=== PATIENT | male | born 1930 | race Caucasian/White ===

== ENCOUNTER 2016-09-24 10:38 | Inpatient (IN) | payer MEDICARE ==
--- NOTE | 2016-09-24 11:08 | EDPRACDOC ---
- Treatment Prior to ED Arrival Reported Medications/Treatment [employer] EMS Treatment ALS IV Yes - General Information Chief Complaint: Neuro Symptoms/Deficits Stated Complaint: POSSIBLE STROKE Time Seen by Provider: 09/24/16 10:48 Information Source: Patient, Family, [facility] Mode of Arrival:: Ambulance Home Medications: Home Medications Cyanocobalamin (Vitamin B-12) [Vitamin B-12] 100 mcg PO HS 09/03/12 Finasteride 5 mg PO QAM 09/03/12 Lisinopril/Hydrochlorothiazide [Lisinopril-Hctz 20-12.5 mg Tab] 1 tab PO .DAILY@ NOON 09/03/12 Tamsulosin HCl [Flomax] 0.4 mg PO [facility] 09/03/12 Furosemide 20 mg PO [facility] 01/15/16 Insulin Detemir [Levemir] 16 units SQ [facility] 01/15/16 Pravastatin [Pravachol] 20 mg PO HS 01/15/16 Aspirin [Jessica Aspirin] 325 mg PO HS 09/24/16 Ergocalciferol (Vitamin D2) [Vitamin D] 50,000 units PO Th@0900 09/24/16 Sertraline HCl [Zoloft] 50 mg PO DAILY 09/24/16 Allergies/Adverse Reactions: Allergies Allergy/AdvReac Type Severity Reaction Status Date / Time No Known Allergies Allergy Verified 09/24/16 11:33 - History of Present Illness Exact Onset of Symptoms: Known Date Symptoms Started: 09/24/16 Time Symptoms Started: 08:45 Symptoms Started: Reports: Suddenly HPI: PT WITH DYSARTHRIA THIS AM, WHILE EATING BREAKFAST. NOTICED BY . INITIALLY NOTICED THAT HE WAS NOT EATING WITH A FORK BUT A SPOON, NOTICED BY HOME SALES SUPPORT ADVISOR. PT DOES USUALLY START THE MORNINGS TALKING SLOWLY. DOES NOT AMBULATE WITHOUT A WALKER. SYMPTOMS RESOLVED AT TIME OF EVAL. BROUGHT BY EMS. PT HAD IMPROVE BY TIME OF EVAL. NO H/O CVA PER . TAKES ASPIRIN 325 Q HS. ED Past Medical History - Patient Medical History Cardiac History: Reports: Atrial Fibrillation, Hypertension, Congestive Heart Failure, Hypercholesterolemia GI/ History: Reports: Renal Disease (CKD STAGE IV), Gastroesophageal Reflux Psychological History: Denies: Depression Systemic History: Reports: Diabetes. Denies: Cancer - Social Medical History Smoking Status: Never smoker EDM Review of Systems - Review of Systems ROS Negative Except as Marked: Yes All systems reviewed and were negative except as marked Constitutional: No Symptoms Reported Eyes: No Symptoms Reported Respiratory: No Symptoms Reported Cardiovascular: No Symptoms Reported Genitourinary: No Symptoms Reported Musculoskeletal: No Symptoms Reported Integumentary: No Symptoms Reported - Physical Exam Constitutional: Alert (Awake), No apparent distress Oriented to: Time, Person, Place Last recorded Vital Signs: Last Vital Signs Temp 98.6 F 09/24/16 10:40 Pulse 74 09/24/16 10:52 Resp 16 09/24/16 10:52 BP 124/74 09/24/16 10:52 Pulse Ox 97 09/24/16 10:52 Oxygen Pulse Oxygen Saturation 97 O2 Device Oxygen Flow Rate Fraction of Inspired Oxygen ( FIO2) - HEENT Head: Normal ( normocephalic) Eye Exam: Normal (PERRL, EOMI, Sclera white) Oropharynx: Normal (Pharynx:Moist without exudate,Gums-no swelling) Nose: No Symptoms Reported (septum midline) Neck: Normal (FROM, trachea at midline) - Respiratory/Cardiovascular Respiratory: Normal - CTA (BBS clear to auscultation without adventitious sounds ) Cardiovascular: Normal (RRR without murmur, gallop or rub) - GI Auscultation: Normal (NABS) Palpation: Normal (Soft,No rebound or guarding, non distended) Tenderness: Non tender Son's Sign: Negative - Musculoskeletal Back: Normal (Non-Tender) Extremities: Normal (Normal tone, Pulses 2+ No cyanosis or edema, FROM) - Integumentary Skin: Normal, Warm, Dry Lymphatics: Normal (no adenopathy) - Neurologic Memory Impaired: Normal Motor Function: Normal (Normal tone, Pulses 2+ No cyanosis or edema, FROM) Cranial Nerve: Normal (CN II-X11 intact sensation, strength 5/5) Cerebellar: Normal Mood Description: Normal Perception: Normal - Re-evaluation Re-evaluation 1 Re-evaluation Time: 12:37 FAMILY REPORTS PT STILL SPEAKING SLOWLY. - Results 09/24/16 11:00 09/24/16 11:00 - EKG EKG #1 EKG Time: 11:02 -: Yes EKG interpreted by me Rate: bpm: 80 Rhythm: Afib Block: RBBB Hypertrophy: None Comments: ABNORMAL EKG Comparison: 09/03/12 (OLD AFIB. NO CHANGE) - Departure Yes I personally saw and evaluated the patient. Disposition: Admit IP To This Hospital Condition: Stable Final Diagnosis: TIA (transient ischemic attack) Qualifiers: Transient cerebral ischemia type: other Qualified Code(s): G45.8 - Other transient cerebral ischemic attacks and related syndromes Decision to Admit Time: 12:36 Decision to admit date: 09/24/16 Decision to admit: from ED - Physician Consulted Hospitalist Time Called: 12:36 Provider Called: Rita Ritchie Time Outsole Beveler Returned Call: 12:36
[2016-09-24 11:11] LABS: AUTOMATED BASOPHIL 0.3 % (0-2); AUTOMATED EOSINOPHIL 0.9 % (0-5); AUTOMATED LYMPH 19.7 % (17-44); AUTOMATED MONOCYTE 8.9 % (3-10); AUTOMATED NEUTROPHIL 70.2 % (45-76); MPV 9.9 fL (7.4-10.4)
--- NOTE | 2016-09-24 11:14 | DIRPT ---
CLINICAL DATA: 85-year-old male with altered mental status with left facial droop. History of skin cancer. Initial encounter. EXAM: CT HEAD WITHOUT CONTRAST TECHNIQUE: Contiguous axial images were obtained from the base of the skull through the vertex without intravenous contrast. COMPARISON: None. FINDINGS: No intracranial hemorrhage or CT evidence of large acute infarct. Probable remote tiny infarct left basal ganglia if further delineation is clinically desired, MR imaging may be considered. Small vessel disease changes. Global atrophy without hydrocephalus. No intracranial mass lesion noted on this unenhanced exam. Vascular calcifications. Post lens replacement. Mastoid air cells, middle ear cavities and visualized paranasal sinuses are clear. IMPRESSION: No intracranial hemorrhage or CT evidence of large acute infarct. Probable remote tiny infarct left basal ganglia if further delineation is clinically desired, MR imaging may be considered Global atrophy without hydrocephalus. Vascular calcifications. These results were called by telephone at the time of interpretation on 09/24/2016 at 11:[address] BARBARA PENA DO, who verbally acknowledged these results. Electronically Signed By: Olaf Cano M.D. On: 09/24/2016 11:08
[2016-09-24 11:23] LABS: BLOOD UREA NITROGEN 39 MG/DL (9-20); CALC CORRECTED 9.6 MG/DL (8.4-10.2); CALCIUM 9.4 MG/DL (8.4-10.2); CALCULATED OSMOLALITY 283 MOs/Kg (270-290); CHLORIDE 104 mEq/L (98-107); GLUCOSE 158 MG/DL (70-99); SODIUM LEVEL 141 mEq/L (137-146); TOTAL PROTEIN 6.9 G/DL (6.3-8.2)
[2016-09-24 11:28] LABS: PARTIAL THROMB. TIME 22.4 SEC (22-35); PT-INR 1.1
--- NOTE | 2016-09-24 11:42 | DIRPT ---
CLINICAL DATA: 85-year-old male with weakness and difficulty speaking this morning. Initial encounter. EXAM: PORTABLE CHEST 1 VIEW COMPARISON: 01/15/2016 chest radiographs. FINDINGS: Portable AP upright view at 1104 hours. Mildly lower lung volumes. Allowing for portable technique, the lungs remain clear. Stable cardiac size and mediastinal contours. IMPRESSION: Low lung volumes, otherwise no acute cardiopulmonary abnormality. Electronically Signed By: Bill Leary M.D. On: 09/24/2016 11:39
[2016-09-24 12:56] LABS: RBC/URINE 0-2 (0-2); WBC/URINE 0-2 (0-2)
[2016-09-24 12:57] LABS: LEUKOCYTES/URINE NEG (NEGATIVE); NITRITE/URINE NEG (NEGATIVE); URINE OCCULT BLOOD NEG (NEG/TRACE)
[2016-09-24] MEDS ORDERED: BISACODYL 10 MG SUPP PR PRN (13:33)
[2016-09-24] MEDS ORDERED: BISACODYL 5 MG TAB PO PRN (13:33)
[2016-09-24] MEDS ORDERED: ACETAMINOPHEN 650 MG SUPP PR PRN (13:33)
[2016-09-24] MEDS ORDERED: MAGNESIUM HYDROXIDE 30 ML BOTTLE PO PRN (13:33)
[2016-09-24] MEDS ORDERED: PROMETHAZINE 25 MG/ML VIAL IV PRN (13:33)
[2016-09-24] MEDS ORDERED: ACETAMINOPHEN 325 MG/TAB TABLET PO PRN (13:33)
[2016-09-24] MEDS ORDERED: GLUCOSE (ORAL GEL) 15 GM TUBE PO PRN (13:33)
[2016-09-24] MEDS ORDERED: BENZONATATE 100 MG PERLES PO PRN (13:33)
[2016-09-24] MEDS ORDERED: SODIUM CHLORIDE 0.9% 3 ML FLUSH FLUSH PRN (13:33)
[2016-09-24] MEDS ORDERED: Albuterol/Ipratropium Neb 3 ML NEB NEB PRN (13:33)
[2016-09-24] MEDS ORDERED: GLUCAGON 1 MG VIAL SQ PRN (13:33)
[2016-09-24] MEDS ORDERED: ONDANSETRON HCL 4 MG/2 ML VIAL IV PRN (13:33)
[2016-09-24] MEDS ORDERED: DEXTROSE 25 GM/50 ML PFS IV PRN (13:33)
[2016-09-24] MEDS ORDERED: SIMETHICONE 80 MG TAB PO PRN (13:33)
[2016-09-24] MEDS ORDERED: GUAIFENESIN 200 MG/10 ML UDC PO PRN (13:33)
[2016-09-24] MEDS ORDERED: INSULIN DETEMIR 100 UNITS/ML PEN SQ SCH (14:00)
[2016-09-24] MEDS ORDERED: ENOXAPARIN 40 MG/0.4 ML PFS SQ SCH (14:00)
[2016-09-24] MEDS: D5-1/2NS/KCL 20 mEq 1,000 ML IV SCH (15:58)
[2016-09-24] MEDS: ENOXAPARIN 80 MG/0.8 ML PFS SQ SCH (15:59)
[2016-09-24] MEDS: SODIUM CHLORIDE 0.9% 3 ML FLUSH FLUSH SCH (16:00)
[2016-09-24] MEDS: INSULIN DETEMIR 100 UNITS/ML PEN SQ SCH (16:01)
[2016-09-24] MEDS: REGULAR INSULIN 100 UNITS/ML - 3 ML VIAL SQ SCH (17:49)
--- NOTE | 2016-09-24 20:40 | HISTPHYS ---
- Chief Complaint Slurred speech - History of Present Illness The patient is an 85-year-old white male with a history of controlled atrial fibrillation diabetes and hypertension who was at his baseline state of health on the morning of admission. He has a home health aide who was present in the home. The patient was apparently eating his breakfast but was using a spoon instead of his fork. When the aide asked him about this she noted that his speech was slurred and slower than usual. She also noted that he was drooling. The patient's noted the symptoms as well. Apparently when the patient woke up this morning he was having none of the symptoms. He only required amount of help with his ADLs. Since the patient started his symptoms the family has noted that his speech is a little bit less slurred but it is still very slow. Normally the patient has no difficulty speaking. He was noted to be moving his arms and legs as well as usual. No facial droop was noted. The family brought him to the emergency department for evaluation for a possible stroke. The patient and family deny that he has had any recent illness no URI symptoms fever cough nausea vomiting diarrhea. - Medical History Cardiac History: Reports: Atrial Fibrillation (Chronic rate controlled AFib), Hypertension, Congestive Heart Failure, Hypercholesterolemia. Denies: Syncope Respiratory History: Reports: No Significant History GI/ History: Reports: Renal Disease (CKD STAGE IV per old records) Musculoskeletal History: Reports: Arthritis Systemic History: Reports: Diabetes (Uses Levemir. Checks his blood sugar once a day. He has had no recent iss) Neurological History: Denies: Cerebrovascular Accident, Guillian-Wellton Syndrome , Parkinson's, Metabolic encephalopathy Psychological History: Denies: Depression - Surgical History Reports: Hernia Surgery (Right inguinal hernia repair in 2009) - Medictions/Allergies Allergies No Known Allergies Allergy (Verified 09/24/16 15:58) Current Medication List: Reviewed (Medications were reviewed with the patient's and see an a) Home Medications Cyanocobalamin (Vitamin B-12) [Vitamin B-12] 100 mcg PO HS 09/03/12 Finasteride 5 mg PO QAM 09/03/12 Lisinopril/Hydrochlorothiazide [Lisinopril-Hctz 20-12.5 mg Tab] 1 tab PO .DAILY@ NOON 09/03/12 Tamsulosin HCl [Flomax] 0.4 mg PO QAM 09/03/12 Furosemide 20 mg PO [facility] 01/15/16 Insulin Detemir [Levemir] 16 units SQ [facility] 01/15/16 Pravastatin [Pravachol] 20 mg PO 01/15/16 Aspirin [Jessica Aspirin] 325 mg PO HS 09/24/16 Ergocalciferol (Vitamin D2) [Vitamin D] 50,000 units PO Th@0900 09/24/16 Sertraline HCl [Zoloft] 50 mg PO DAILY 09/24/16 - Family History Reports: Cardiac Disorders (Father of congestive heart failure.), Other ( Mother from Alzheimer's) - Social History Travel Outside of [place] in the Last 3 Months?: No Lives: with Spouse Smoking Status: Never smoker Social History: Denies: Alcohol Use - Review of Systems Constitutional: negative: Chills, Fever, Diaphoresis, Loss of Appetite, Weight loss Eyes: negative: Blurred Vision, Double Vision Ears: negative: Drainage Nose: negative: Congestion, Discharge Mouth: Drooling Throat/Neck: negative: Pain, Hoarseness Respiratory: negative: Cough, Shortness of Breath, Wheezing Cardiovascular: negative: Chest Pain, Palpitations Gastrointestinal: negative: Nausea, Vomiting, Abdominal Pain, Diarrhea Genitourinary: Benign prostatic hyperplasia (BPH). negative: Dysuria, Frequency , Hematuria Neurological: Speech Difficulty, Memory Changes (Family has noted some very mild memory issues). negative: Dizziness, Gait Difficulty, Headache, Vertigo Musculoskeletal:: Arthritis Integumentary: negative: Wound Hematologic: Anemia (Chronic hemoglobin of about 11. Was seen by Dr. Garcia in the past but no follow-up was needed.) Endocrine: Diabetes Psychiatric: Depression (Just had his Zoloft dose increased). negative: Anxiety - Physical Exam Vital Signs: Initial Vitals Temperature 98.6 F 09/24/16 10:40 Pulse Rate 80 09/24/16 10:40 Respiratory Rate 18 09/24/16 10:40 Blood Pressure 126/70 09/24/16 10:40 Pulse Oxygen Saturation 100 09/24/16 10:40 Constitutional: Alert, Other (Stares into space. Does answer questions but does so very slowly.) - HEENT Head: Normal Eye: negative: Conjunctival Injection Oropharynx: Membranes Dry. negative: Drooling Tympanic Membrane: Normal ENT EAC: Normal Nose: negative: Congestion, Discharge Respiratory: Normal - CTA, Excursion (Decreased excursion) Cardiovascular: Irregular. negative: Gallop/S3, Gallop/S4 - GI Auscultation: Normal Palpation: Normal. negative: Enlarged liver, Enlarged spleen Tenderness: Non tender Rectal Exam: Deferred - Exam Deferred: Yes - Musculoskeletal Back: negative: CVA Tenderness Extremities: Edema (One to 2+ pitting edema in his lower extremities. He is usually wearing compression hose but does not have them on today) Spine: non-tender - Integumentary Skin: Normal, Warm, Dry Lymphatics: Normal. negative: Cervical Adenopathy, Supraclavicular Adenopathy - Neurologic Memory Impaired: Other (Difficult to test because the patient is very very slow with answering.) Motor Function: Normal (Will lift both his arms and legs against gravity.) Cranial Nerve: Normal (Cranial nerves 3-12 appear to be intact although the patient requires a fair amount of prompting) Cerebellar: negative: Past-Pointing, Tremor Mood Description: Flat Thought: Other (Sentences have normal content.) - Foot Exam Foot Prick Test: Abnomal Right, Abnormal Left (Decreased sensation from his arch distally on both feet) Babinski Reflex Response: Present Right Skin/Nail Foot Exam: Dry. negative: Fissure/Cracks Vascular Foot exam: Edema Foot Exam: Normal inspection - Focused CV Perfusion Exam Vital Signs: Last Vital Signs Temp 98.1 F 09/24/16 20:27 Pulse 76 09/24/16 20:27 Resp 18 09/24/16 20:27 BP 119/64 09/24/16 20:27 Pulse Ox 95 09/24/16 20:27 - Lab Results 09/24/16 11:00 09/24/16 11:00 Urinalysis Urine Color Yellow 09/24/16 12:45 Urine Clarity Clear 09/24/16 12:45 Urine pH 6.0 (5.0-8.0) 09/24/16 12:45 Ur Specific [place] 1.015 (1.003-1.035) 09/24/16 12:45 Urine Protein Neg (NEG/TRACE) 09/24/16 12:45 Urine Glucose (UA) Neg (NEGATIVE) 09/24/16 12:45 Urine Ketones Neg (NEGATIVE) 09/24/16 12:45 Urine Occult Blood Neg (NEG/TRACE) 09/24/16 12:45 Urine Nitrite Neg (NEGATIVE) 09/24/16 12:45 - Diagnostic Findings Chest x-ray report shows low lung volumes otherwise no acute cardiopulmonary abnormality CT of the head without contrast showed no intracranial hemorrhage or evidence of large acute infarct. Probable remote tiny infarct in the left basal ganglia. Global atrophy without hydrocephalus. Vascular calcifications. - Assessment (1) CVA (cerebral vascular accident) I63.9 - CEREBRAL INFARCTION, UNSPECIFIED Suspected Present on Admission: Yes Qualifiers: CVA mechanism: C Precerebral and cerebral artery: P Laterality of affected vessel: L The CT of the head negative for bleed but will still treat the patient as a stroke. Evidence based care orders were used. OT PT and speech will be ordered. Manage his diabetes and hypertension. Will add full-dose Lovenox as the patient has a history of AFib. The chest check an echocardiogram. Check an MRI of his head as well as ultrasound of his carotids. Would like to do as little contrast study as possible in this patient with renal disease. (2) Dysphagia R13.10 - DYSPHAGIA, UNSPECIFIED Acute Present on Admission: Yes Qualifiers: Dysphagia type: unspecified Qualified Code(s): R13.10 - Dysphagia, unspecified Speech therapy to see the patient. Patient to be NPO. The patient's family was feeding him ice chips in the emergency department at they were asked to discontinue this.. (3) Hypertension I10 - ESSENTIAL (PRIMARY) HYPERTENSION Acute Present on Admission: Yes Qualifiers: Hypertension type: H Continue outpatient medications. Need to be sure the patient's blood pressure does not drop too low given the presumptive diagnosis of stroke (4) Diabetes mellitus E11.9 - TYPE 2 DIABETES MELLITUS WITHOUT COMPLICATIONS Acute Present on Admission: Yes Qualifiers: Diabetes mellitus type: type 2 Diabetes mellitus complication status: with neurologic complications Diabetes mellitus complication detail: with polyneuropathy Diabetic retinopathy severity: D Proliferative retinopathy type: P Diabetes mellitus macular edema: D Diabetes mellitus residential insulin use: with residential use Laterality: L Chronic kidney disease stage: C Qualified Code(s): E11.42 - Type 2 diabetes mellitus with diabetic polyneuropathy; Z79.4 - penitentiary (current) use of insulin Continue sliding scale. Will give the patient some IV fluids while he is NPO. Will hold his Levemir until he is taking p.o. (5) Atrial fibrillation with normal ventricular rate I48.91 - UNSPECIFIED ATRIAL FIBRILLATION Chronic Present on Admission: Yes Patient normally sees Dr. Megan kincaid. He has not been anticoagulated in some time. His rate has been controlled for several years on his outpatient medications. 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 Will have PT see the patient. Case Care Discussed with: Patient, Family, Nursing Staff Total Time: 55 minutes Critical Care: No Couseling Time (>50% in counseling/coordination): No Code: 34636
[2016-09-24] MEDS: SERTRALINE HCL 50 MG TAB PO SCH (23:21)
[2016-09-25] MEDS: REGULAR INSULIN 100 UNITS/ML - 3 ML VIAL SQ SCH ×5 (01:12→21:33)
[2016-09-25] MEDS: ENOXAPARIN 80 MG/0.8 ML PFS SQ SCH ×2 (01:16→13:24)
[2016-09-25] MEDS: SODIUM CHLORIDE 0.9% 3 ML FLUSH FLUSH SCH ×2 (02:32→17:22)
[2016-09-25] MEDS: D5-1/2NS/KCL 20 mEq 1,000 ML IV SCH ×3 (05:23→18:16)
[2016-09-25] MEDS: INSULIN DETEMIR 100 UNITS/ML PEN SQ SCH (08:28)
--- NOTE | 2016-09-25 11:38 | CAPUECHO ---
INDICATION: CVA HEIGHT: 177.8 cm (5 ft 10.0 in) WEIGHT: 83.9 kg (185.0 lbs) BP: 136/77 BSA: 2.969449 m MEASUREMENTS 2D RVIDd: 3.1 cm LVOT Diam: 2.1 cm EF Biplane: 62.28 % LAESV MOD A4C: 129.7 ml LAESV MOD A2C: 86.1 ml LAESV Index (A-L): 54.86 ml/m M-MODE IVSd: 1.0 cm LVIDd: 5.7 cm LVPWd: 1.0 cm LVIDs: 3.7 cm EF(Teich): 64 % Ao Diam: 3.4 cm LA Diam: 3.9 cm DOPPLER MV E Jerry: 1.12 m/s MV A Jerry: 0.01 m/s MV PHT: 53.08 ms MVA By PHT: 4.15 cm LVOT Vmax: 0.90 m/s AV Vmax: 2.05 m/s BRUCE Vmax, Pt: 1.59 cm AV Vmax: 2.07 m/s TR Vmax: 2.41 m/s TR maxP mmHg RVSP: 46.65 mmHg FINDINGS ------- Procedure:2D images, m-mode, color and spectral Doppler were obtained and reviewed. ECG rhythm:Sinus rhythm with extra systolic beats. Study quality:This was a technically adequate study. Left Ventricle:The left ventricular size is normal. Left ventricular wall thickness is normal. T here is normal global left ventricular contractility. Overall left ventricular systolic function i s normal with, an EF between 60 - 65 %. Pseudonormal LV filling pattern, consistent with elevated LA pressure. Right Ventricle:The right ventricle is normal in size and function. Left Atrium:The left atrium is normal in size. Right Atrium:The right atrium is normal in size and function. Aortic Valve:The aortic valve is trileaflet and appears structurally normal. There is mild aortic valve sclerosis. Mitral Valve:Normal appearing mitral valve. Mild mitral regurgitation is present. Tricuspid Valve:The tricuspid valve appears structurally normal. [id number] tricuspid regurg itation present. The right ventricular systolic pressure, as measured by Doppler, is 47mmHg. Pulmonic Valve:The pulmonic valve is normal. There is no pulmonic regurgitation present. Aorta:The aortic root, ascending aorta and aortic arch not visualized. IVC:Normal inferior vena cava without normal inspiratory collapse, patient unable to sniff. Pericardium:Echo free space may represent effusion or a pericardial fat pad. CONCLUSIONS 1. Overall left ventricular systolic function is normal with, an EF between 60 - 65 %. 2. Pseudonormal LV filling pattern, consistent with elevated LA pressure. 3. The left atrium is normal in size. 4. Mild mitral regurgitation is present. 5. Cvuv-fo-zjeldkjg tricuspid regurgitation present. 6. The right ventricular systolic pressure, as measured by Doppler, is 47mmHg. Electronically Signed By: Luis Enrique Schuster MD -- Electronically Signed On: 11:37:23
--- NOTE | 2016-09-25 12:21 | GENMEDPROG ---
Subjective Note: The patient speech is better this morning. However overnight and through the day today the patient has had increased of dizziness which he is describing as his head spinning in the room. He feels this whether he is moving or still. When he is supine he feels that he is falling backwards. He denies any headache nausea or vomiting with it. It is making him quite anxious. He tolerated the MRI of his head well. He is not yet had ultrasound of his carotids and vertebrals Current Medication List: Reviewed Currently: Denies: Cough, Wheezing, FIGUEROA, SOB, Tobacco Use/Hx, Nausea and Vomiting DVT Prophylaxis: Yes - Physical Examination Vital Signs and I&O: Last Vital Signs Temp 98.2 F 09/25/16 08:39 Pulse 84 09/25/16 10:15 Resp 18 09/25/16 08:39 BP 149/79 09/25/16 08:39 Pulse Ox 95 09/25/16 08:39 Oxygen Pulse Oxygen Saturation 95 O2 Device Room Air Oxygen Flow Rate Fraction of Inspired Oxygen ( FIO2) Intake & Output 09/22/16 09/23/16 09/24/16 09/25/16 23:59 23:59 23:59 23:59 Intake Total 340 1812 Output Total 200 1400 Balance 140 412 Patient's weight 47.038 kg 83.234 kg General: Alert, Oriented x3, Cooperative, Mild distress (Anxious because of the dizziness) HEENT: PERRLA, EOMI, Mucous membr. moist/pink. negative: Anicteric Sclera Neck: Normal Trachea alignment, Normal inspection Lymphatics: Normal. negative: Cervical Adenopathy, Supraclavicular Adenopathy Respiratory: Normal - CTA, Excursion (Decreased excursion) Cardiovascular: Good Pedal Pulses, LE Edema (1+ bilaterally), Irregular GI: Normal bowel sounds, Soft, Non tender, No hepatospenomegaly Extremities/Musculoskeletal: Normal pulses Skin: Warm,Dry and Intact Neurological: Normal speech (Normal speed and is understandable. Family states this is very close to his baseline.), Strength at 5/5 X4 ext, Cranial nerves 3- 12 NL. negative: Dysmetria Psych/Mental Status: Anxious Lab/DI/Studies Reviewed: 09/24/16 11:00 09/24/16 11:00 - Assessment (1) CVA (cerebral vascular accident) Suspected I63.9 - CEREBRAL INFARCTION, UNSPECIFIED Qualifiers: CVA mechanism: C Precerebral and cerebral artery: P Laterality of affected vessel: L Comment/Plan: MRI of the head is negative for acute ischemia. Echocardiogram is normal with a normal ejection fraction. No clot was noted. Ultrasound of the carotids and vertebrals is still pending. The patient's speech has improved in 24 hours but he has developed a new symptom of vertigo. I am still concerned that this is a neurologic event such as a RIND. I will change him from full-dose Lovenox to prophylactic dose of Lovenox (2) Vertigo Acute R42 - DIZZINESS AND GIDDINESS Comment/Plan: The patient has developed this as his speech has improved. It is difficult to believe the dose to symptoms are not related however his MRI is normal. Will start him on some Ativan twice a day to see if it improves his symptoms of dizziness. Ultrasound of his carotid/vertebrals is still pending. (3) Dysphagia Acute R13.10 - DYSPHAGIA, UNSPECIFIED Qualifiers: Dysphagia type: unspecified Qualified Code(s): R13.10 - Dysphagia, unspecified Comment/Plan: Speech therapy has seen the patient. He is on nectar thick liquids. Barium swallow is ordered. (4) Hypertension Acute I10 - ESSENTIAL (PRIMARY) HYPERTENSION Qualifiers: Hypertension type: secondary to endocrine disorders Qualified Code(s): I15.2 - Hypertension secondary to endocrine disorders Comment/Plan: Since there is no evidence of an acute stroke I have added back the patient's outpatient blood pressure medication. (5) Diabetes mellitus Acute E11.9 - TYPE 2 DIABETES MELLITUS WITHOUT COMPLICATIONS Qualifiers: Diabetes mellitus type: type 2 Diabetes mellitus complication status: with neurologic complications Diabetes mellitus complication detail: with polyneuropathy Diabetic retinopathy severity: D Proliferative retinopathy type: P Diabetes mellitus macular edema: D Diabetes mellitus longterm insulin use: with longterm use Laterality: L Chronic kidney disease stage: C Qualified Code(s): E11.42 - Type 2 diabetes mellitus with diabetic polyneuropathy; Z79.4 - custodial (current) use of insulin Comment/Plan: Since the patient is eating I have added back as Levemir. Will also use sliding scale. (6) Atrial fibrillation with normal ventricular rate Chronic I48.91 - UNSPECIFIED ATRIAL FIBRILLATION Comment/Plan: Patient normally sees Dr. Vicente. He has not been anticoagulated in some time. His rate has been controlled for several years on his outpatient medications. Echo is negative for clot. (7) Neurologic gait dysfunction Chronic R26.9 - UNSPECIFIED ABNORMALITIES OF GAIT AND MOBILITY Comment/Plan : Patient normally use a walker for ambulation. Will have PT see the patient. Case Care Discussed with: Patient, Consultants, Family, Nursing Staff Education/Counseling Given To: Patient, Family Member Education/Counseling Given Regarding: Diagnosis, Treatment, Prognosis Total Time: 45 minutes Critical Care: No Couseling Time (>50% in counseling/coordination): No Code: 86703 (12+)
[2016-09-25] MEDS ORDERED: Vaccine Screening Complete SCH (13:00)
--- NOTE | 2016-09-25 13:23 | DIRPT ---
CLINICAL DATA: Stroke. Speech changes. Inability to swallow. EXAM: MRI HEAD WITHOUT AND WITH CONTRAST TECHNIQUE: Multiplanar, multiecho pulse sequences of the brain and surrounding structures were obtained without and with intravenous contrast. CONTRAST: 20 mL MultiHance COMPARISON: Head CT 09/24/2016 FINDINGS: The study is mildly motion degraded throughout. There is no evidence of acute infarct, intracranial hemorrhage, mass, midline shift, or extra-axial fluid collection. Mild generalized cerebral atrophy is within normal limits for age. Subcortical and periventricular cerebral white matter T2 hyperintensities are nonspecific but compatible with minimal chronic small vessel ischemic disease, less than is often seen in patients of this age. Small T2 hyperintensities in the left lentiform nucleus are favored to reflect mildly dilated perivascular spaces. No definite abnormal enhancement is identified. Small focus of increased signal in the posterior left temporal lobe on axial postcontrast images is not confirmed on the coronal sequence and is favored to be artifactual. Prior bilateral cataract extraction is noted. Paranasal sinuses and mastoid air cells are clear. Major intracranial vascular flow voids are preserved. IMPRESSION: Mildly motion degraded examination without acute intracranial abnormality identified. Electronically Signed By: Eduardo Richter M.D. On: 09/25/2016 13:21
[2016-09-25] MEDS ORDERED: FUROSEMIDE 20 MG TAB PO PRN (17:44)
[2016-09-25] MEDS ORDERED: LORAZEPAM 0.5 MG TAB PO PRN (17:48)
[2016-09-25] MEDS ORDERED: TEMAZEPAM 15 MG CAP PO ONE (21:00)
[2016-09-25] MEDS ORDERED: Non-Formulary Medication ITEM (Cyanocobalamin (Vitamin B-12) [Vitamin B-12 (Cyanocobalam PO SCH (21:00)
[2016-09-25] MEDS: PRAVASTATIN 20 MG TAB PO SCH (21:33)
[2016-09-25] MEDS: SERTRALINE HCL 100 MG TAB PO SCH (21:34)
[2016-09-25] MEDS: ENOXAPARIN 40 MG/0.4 ML PFS SQ SCH (21:34)
[2016-09-25] MEDS: SERTRALINE HCL 50 MG TAB PO SCH (21:34)
[2016-09-26] MEDS: REGULAR INSULIN 100 UNITS/ML - 3 ML VIAL SQ SCH ×4 (05:22→20:37)
[2016-09-26] MEDS: SODIUM CHLORIDE 0.9% 3 ML FLUSH FLUSH SCH ×2 (05:22→17:53)
[2016-09-26] MEDS: INSULIN DETEMIR 100 UNITS/ML PEN SQ SCH (07:57)
[2016-09-26] MEDS: FINASTERIDE 5 MG TAB PO SCH (07:58)
--- NOTE | 2016-09-26 08:13 | DIRPT ---
CLINICAL DATA: Speech difficulty and difficulty swallowing. History of hypertension and diabetes. EXAM: BILATERAL CAROTID DUPLEX ULTRASOUND TECHNIQUE: Cristina scale imaging, color Doppler and duplex ultrasound were performed of bilateral carotid and vertebral arteries in the neck. COMPARISON: None. FINDINGS: Criteria: Quantification of carotid stenosis is based on velocity parameters that correlate the residual internal carotid diameter with NASCET-based stenosis levels, using the diameter of the distal internal carotid lumen as the denominator for stenosis measurement. The following velocity measurements were obtained: RIGHT ICA: 82/24 cm/sec CCA: 83/11 cm/sec SYSTOLIC ICA/CCA RATIO: 1.0 DIASTOLIC ICA/CCA RATIO: 2.1 ECA: 87 cm/sec LEFT ICA: 55/20 cm/sec CCA: 84/8 cm/sec SYSTOLIC ICA/CCA RATIO: 0.7 DIASTOLIC ICA/CCA RATIO: 2.4 ECA: 72 cm/sec RIGHT CAROTID ARTERY: The common carotid artery demonstrates intimal thickening. There is evidence of a mild amount of calcified plaque at the level of the carotid bulb and proximal ICA. Velocities and waveforms are normal and estimated right ICA stenosis is less than 50%. RIGHT VERTEBRAL ARTERY: Antegrade flow with normal waveform and velocity. LEFT CAROTID ARTERY: There is a mild amount of calcified plaque in the common carotid artery. Mild amount of plaque is also present at the level of the carotid bulb and extending into the proximal ICA. Velocities and waveforms are normal and estimated left ICA stenosis is less than 50%. LEFT VERTEBRAL ARTERY: Antegrade flow with normal waveform and velocity. IMPRESSION: Plaque at the level of both carotid bulbs, proximal internal carotid arteries and the distal left common carotid artery. Overall plaque volume is mild and estimated bilateral ICA stenoses are less than 50%. Electronically Signed By: Fab Montes M.D. On: 09/26/2016 08:10
[2016-09-26] MEDS ORDERED: TAMSULOSIN HCL 0.4 MG CAP PO SCH (09:00)
--- NOTE | 2016-09-26 09:00 | GENMEDPROG ---
Subjective Note: Patient in bed responsive follows commands. According to and daughter speech is clear. Patient still reports feeling dizzy and lightheaded on occasions. He stays that he had a sensation of food getting stuck in his throat for past few months. Patient denies and difficulties breathing cough phlegm production. Notes Reviewed: Yes Events from last night noted and discussed with Clinical Staff Current Medication List: Reviewed Currently: Reports: FIGUEROA, Reflux Sx. Denies: Cough, Wheezing, SOB, Tobacco Use/ Hx, Nausea and Vomiting DVT Prophylaxis: Yes - Physical Examination Vital Signs and I&O: Last Vital Signs Temp 98.0 F 09/26/16 07:59 Pulse 70 09/26/16 07:59 Resp 18 09/26/16 07:59 BP 139/87 09/26/16 07:59 Pulse Ox 97 09/26/16 07:59 Oxygen Pulse Oxygen Saturation 97 O2 Device Room Air Oxygen Flow Rate Fraction of Inspired Oxygen ( FIO2) Intake & Output 09/23/16 09/24/16 09/25/16 09/26/16 23:59 23:59 23:59 23:59 Intake Total 340 2792 313 Output Total 200 1400 825 Balance 140 1392 -512 Patient's weight 47.038 kg 83.234 kg 83.96 kg General: Alert, Oriented x3, Cooperative, Mild distress (Anxious because of the dizziness) HEENT: Normal, PERRLA, EOMI, Mucous membr. moist/pink. negative: Anicteric Sclera Neck: Normal Trachea alignment, Normal inspection, Limited range of motion Lymphatics: Normal. negative: Cervical Adenopathy, Supraclavicular Adenopathy Respiratory: Diminished, Rhonchi Cardiovascular: Normal S1, Normal S2, Murmurs, Good Pedal Pulses, LE Edema (1+ bilaterally), Irregular GI: Normal bowel sounds, Soft, Non tender, No hepatospenomegaly, No masses Extremities/Musculoskeletal: Normal pulses, Tenderness Skin: Warm,Dry and Intact, No rashes, No breakdown, No significant lesion Neurological: Normal speech (Normal speed and is understandable. Family states this is very close to his baseline.), Strength at 5/5 X4 ext, Cranial nerves 3- 12 NL. negative: Dysmetria Psych/Mental Status: Anxious Lab/DI/Studies Reviewed: Last Vital Signs Temp 98.0 F 09/26/16 07:59 Pulse 70 09/26/16 07:59 Resp 18 09/26/16 07:59 BP 139/87 09/26/16 07:59 Pulse Ox 97 09/26/16 07:59 09/24/16 11:00 09/24/16 11:00 Abnormal Lab Results 09/25/16 09/25/16 13:09 17:24 POC Capillary Glucose 145 H 163 H - Assessment (1) CVA (cerebral vascular accident) Ruled-out I63.9 - CEREBRAL INFARCTION, UNSPECIFIED Qualifiers: Precerebral and cerebral artery: basilar artery Laterality of affected vessel: L Comment/Plan: Family reports that due to safety and high risk for falls patient was taken off Coumadin in the past. Results of workup discussed in details with the patient and his daughter and his . Case discussed with neurologist as well. Continue medical therapy in the form of aspirin 81 mg and Plavix 75 mg daily. (2) Dysphagia Acute R13.10 - DYSPHAGIA, UNSPECIFIED Qualifiers: Dysphagia type: oropharyngeal phase Qualified Code(s): R13.12 - Dysphagia, oropharyngeal phase Comment/Plan: For modified barium swallow today. Will consult GI for possible EGD and esophageal stretching (3) Hypertension Acute I10 - ESSENTIAL (PRIMARY) HYPERTENSION Qualifiers: Hypertension type: secondary to endocrine disorders Qualified Code(s): I15.2 - Hypertension secondary to endocrine disorders Comment/Plan: Keep SBP above 140, cut back lisinopril to 10 mgdaily (4) Atrial fibrillation with normal ventricular rate Chronic I48.91 - UNSPECIFIED ATRIAL FIBRILLATION Comment/Plan: rate controlled.Keep K more than 4 magnesium more than 2 (5) Diabetes mellitus Acute E11.9 - TYPE 2 DIABETES MELLITUS WITHOUT COMPLICATIONS Qualifiers: Diabetes mellitus type: type 2 Diabetes mellitus complication status: with neurologic complications Diabetes mellitus complication detail: with polyneuropathy Diabetic retinopathy severity: D Proliferative retinopathy type: P Diabetes mellitus macular edema: D Diabetes mellitus skilled nursing insulin use: with termite technician use Laterality: L Chronic kidney disease stage: C Qualified Code(s): E11.42 - Type 2 diabetes mellitus with diabetic polyneuropathy; Z79.4 - intermediate manager (current) use of insulin Comment/Plan: Continue ADA diet Levemir and sliding scale regular insulin (6) VBI (vertebrobasilar insufficiency) 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 Change Flomax dosing to HS, keep SBP greater than 140. Continue falls and safety precautions. 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 Will likely require short-term rehab. Additional Notes: Clinic situation discussed in details with patient his and daughter all questions answered, copies of test provided for home records Case Care Discussed with: Patient, Consultants, Family, Nursing Staff, Occupational Therapy, Physical Therapy, [place] Education/Counseling Given To: Patient Education/Counseling Given Regarding: Diagnosis, Treatment, Prognosis, Follow Up Total Time: 55 min . Critical Care: No Code: 91040 (12+)
[2016-09-26 09:29] VITALS: TEMP 98
[2016-09-26] MEDS: CLOPIDOGREL 75 MG TAB PO SCH (10:34)
[2016-09-26] MEDS: PANTOPRAZOLE 40 MG TAB PO SCH (10:34)
[2016-09-26] MEDS ORDERED: LISINOPRIL 20 MG TAB PO SCH ×2 (12:00)
[2016-09-26] MEDS ORDERED: HYDROCHLOROTHIAZIDE 25 MG TAB PO SCH (12:00)
[2016-09-26] MEDS: LISINOPRIL 10 MG TAB PO SCH (13:43)
[2016-09-26] MEDS ORDERED: VARIBAR THIN 40% BARIUM 250 ML ONE (14:41)
[2016-09-26] MEDS ORDERED: VARIBAR NECTAR 40% BARIUM 240 ML ONE (14:42)
--- NOTE | 2016-09-26 17:21 | PCM.CONSGI ---
Consult Date: 09/26/16 Consult Requesting Physician: Thomas Last - History of Present Illness 85-year-old white male with a history of atrial fibrillation diabetes and hypertension admitted with TIA/mild stroke with slurred speech, drooling and weakness. This was also associated with some dizziness. He underwent MRI of the head and carotid Doppler ultrasound which did not reveal any acute abnormalities. GI is being consulted due to dysphagia According to the patient he had problems with dysphagia over last several months and has been having problems swallowing pills. He denies having any cough. He does have occasional problems with liquids as well. During this admission he has been evaluated by speech therapy. There has been no significant oropharyngeal abnormalities noted on modified barium swallow. On review the barium tablet was not given during the test. Patient's family is at the bedside. There would like to evaluate swallowing noninvasively 1st and see if the endoscopy is needed. Patient is currently on aspirin, Plavix and Lovenox. He was sitting in chair - Past Medical History Cardiac History: Reports: Coronary Artery Disease, Atrial Fibrillation Respiratory History: Reports: Cough GI/ History: Reports: Renal Disease (CKD STAGE IV per old records) Musculoskeletal History: Reports: Osteoarthritis Systemic History: Reports: Diabetes Neurological History: Reports: Cerebrovascular Accident Psychological History: Denies: Alcoholism, Substance Use Disorder - Surgical History Past Surgical History: Reports: No Significant History, Hernia Surgery (Right inguinal hernia repair in 2009) - Family History Family History: Reports: Cardiac Disorders (Father of congestive heart failure.), Renal Disease (CKD STAGE IV per old records) - Allergies Allergies No Known Allergies Allergy (Verified 09/24/16 15:58) - Medications Home Medications Cyanocobalamin (Vitamin B-12) [Vitamin B-12] 100 mcg PO HS 09/03/12 Finasteride 5 mg PO QAM 09/03/12 Tamsulosin HCl [Flomax] 0.4 mg PO QAM 09/03/12 Furosemide 20 mg PO QAM PRN 01/15/16 Insulin Detemir [Levemir] 16 units SQ QAM 01/15/16 Pravastatin [Pravachol] 20 mg PO HS 01/15/16 Aspirin [Jessica Aspirin] 325 mg PO HS 09/24/16 Ergocalciferol (Vitamin D2) [Vitamin D] 50,000 units PO Th@0900 09/24/16 Lisinopril/Hydrochlorothiazide [Lisinopril-Hctz 20-25 mg Tab] 1 each PO .DAILY AT NOON 09/25/16 Sertraline HCl [Zoloft] 100 mg PO QHS 09/25/16 - Social History Lives: with Spouse Smoking Status: Never smoker Social History: Denies: Alcohol Use, Substance Use Disorder - Review of Systems Constitutional: Other (No night sweats.). negative: Chills, Fever, Weight loss (Recent) Mouth: negative: Pain Cardiovascular: negative: Chest Pain, Orthopnea, PND Gastrointestinal: Other (No jaundice, dark urine or pale stools.) Genitourinary: Other (Denies polyuria.). negative: Dysuria Neurological: Other (Denies loss of consciousness.). negative: Seizure Allergic/Immunologic: negative: Hives, Itching Hematologic: negative: Easy Bruising - Exam Vital Signs: Temperature: 98.1 F (09/26/16 17:16) HR: 72 (09/26/16 17:16) RR: 18 (09/26/16 17:16) BP: 139/69 (09/26/16 17:16) Pulse Ox: 97 (09/26/16 17:16) General: Alert, Oriented x3, Cooperative, No acute distress HEENT: Normal, Other (No Jaundice). negative: Pallor Cardiovascular: Normal S1, Normal S2, Other (No S3 or S4.). negative: No murmurs Gastrointestinal: Soft, Bowel Sounds (normal), Other (No ascites.). negative: Tender, Guarding, Rigid, Hepatosplenomegaly Extremities: Normal pulses. negative: Swelling, Edema Skin: Warm,Dry and Intact Neurological: Normal speech, Other (No focal neurologic deficits.) Psych/Mental Status: Normal Affect, Cooperative - Labs Result Diagrams: 09/24/16 11:00 09/24/16 11:00 - Assessment and Plan (1) Dysphagia Acute R13.10 - DYSPHAGIA, UNSPECIFIED oropharyngeal phase R13.12 - Dysphagia, oropharyngeal phase Comment: And esophageal - negative modified barium swallow for any significant abnormalities (2) Diabetes mellitus Acute E11.9 - TYPE 2 DIABETES MELLITUS WITHOUT COMPLICATIONS type 2 with neurologic complications with polyneuropathy D P D with manager intermediate use L C E11.42 - Type 2 diabetes mellitus with diabetic polyneuropathy; Z79.4 - snf (current) use of insulin (3) Hypertension Chronic I10 - 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 Conventional Ba Swallow with Ba tablet in AM. MBS was negative. If there is significant stricture., then EGD with dilatation with anesthesia next day 2. Continue Protonix for now 3. I have discussed the above with Dr. Last. 4. I have discussed extensively with the patient and patient's family. Patient 's family is not keen on putting him through EGD multiple comorbid conditions including CVA, advanced age, being on blood thinners. 5. Feed and give medications in sitting position. Addendum: Barium swallow was postponed as patient did eat. It was performed on 09/28/2016 which showed significant esophageal dysmotility without any definite esophageal stricture. It did show wide open Schatzki ring with small hiatal hernia. The barium swallow was reviewed and was discussed with Dr. [place] (radiology). After review, we do not feel that EGD with dilatation would be of any benefit. I have discussed the above with Dr. Last
[2016-09-26] MEDS: ENOXAPARIN 40 MG/0.4 ML PFS SQ SCH (17:59)
[2016-09-26] MEDS: SERTRALINE HCL 100 MG TAB PO SCH (20:37)
[2016-09-26] MEDS: TEMAZEPAM 15 MG CAP PO SCH (20:37)
[2016-09-26] MEDS: PRAVASTATIN 20 MG TAB PO SCH (20:37)
[2016-09-26] MEDS: TAMSULOSIN HCL 0.4 MG CAP PO SCH (20:37)
[2016-09-26] MEDS ORDERED: TEMAZEPAM 15 MG CAP PO PRN (21:00)
[2016-09-27 03:28] VITALS: BMI 26.6
[2016-09-27] MEDS: PANTOPRAZOLE 40 MG TAB PO SCH (05:27)
[2016-09-27] MEDS: SODIUM CHLORIDE 0.9% 3 ML FLUSH FLUSH SCH ×2 (05:30→17:54)
[2016-09-27] MEDS: REGULAR INSULIN 100 UNITS/ML - 3 ML VIAL SQ SCH ×4 (05:53→21:23)
[2016-09-27] MEDS: CLOPIDOGREL 75 MG TAB PO SCH (10:50)
[2016-09-27] MEDS: FINASTERIDE 5 MG TAB PO SCH (10:51)
[2016-09-27] MEDS: INSULIN DETEMIR 100 UNITS/ML PEN SQ SCH (10:51)
[2016-09-27] MEDS: LISINOPRIL 10 MG TAB PO SCH (12:54)
--- NOTE | 2016-09-27 16:40 | GENMEDPROG ---
Subjective Note: Patient in chair responsive oriented follows commands. Denies any headache blurring or double vision, reports no nausea vomiting. Denies any and dizziness or lightheadedness. Tolerating diet with no choking or coughing spells . Notes Reviewed: Yes Events from last night noted and discussed with Clinical Staff Current Medication List: Reviewed Currently: Reports: FIGUEROA, Reflux Sx. Denies: Cough, Wheezing, SOB, Tobacco Use/ Hx, Nausea and Vomiting DVT Prophylaxis: Yes - Physical Examination Vital Signs and I&O: Last Vital Signs Temp 98.2 F 09/27/16 12:00 Pulse 95 09/27/16 14:40 Resp 18 09/27/16 12:00 BP 124/68 09/27/16 12:00 Pulse Ox 96 09/27/16 12:00 Oxygen Pulse Oxygen Saturation 96 O2 Device Room Air Oxygen Flow Rate Fraction of Inspired Oxygen ( FIO2) Intake & Output 09/24/16 09/25/16 09/26/16 09/27/16 23:59 23:59 23:59 23:59 Intake Total 340 2792 1043 471 Output Total 200 2389 943 7198 Balance 140 1392 68 -854 Patient's weight 47.038 kg 83.234 kg 83.96 kg 84.368 kg General: Alert, Oriented x3, Cooperative, No acute distress HEENT: Normal, PERRLA, EOMI, Anicteric Sclera Neck: Non-tender, Limited range of motion Lymphatics: Normal Respiratory: Diminished, Rhonchi Cardiovascular: Regular rate, Regular rate and rhythm, Normal S1, Normal S2, Murmurs GI: Normal bowel sounds, Soft, Non tender, No hepatospenomegaly Extremities/Musculoskeletal: Normal pulses. negative: Swelling, Edema Skin: Warm,Dry and Intact, No rashes Neurological: Normal tone, Cranial nerves 3-12 NL Psych/Mental Status: Anxious - Assessment (1) CVA (cerebral vascular accident) Ruled-out I63.9 - CEREBRAL INFARCTION, UNSPECIFIED Qualifiers: CVA mechanism: C Precerebral and cerebral artery: basilar artery Laterality of affected vessel: L Comment/Plan: Continue aspirin and Plavix. Overall symptoms improved (2) Dysphagia Acute R13.10 - DYSPHAGIA, UNSPECIFIED Qualifiers: Dysphagia type: oropharyngeal phase Qualified Code(s): R13.12 - Dysphagia, oropharyngeal phase Comment/Plan: Passed swallowing test. Follow by speech therapy. For barium swallow tomorrow (3) Hypertension Acute I10 - ESSENTIAL (PRIMARY) HYPERTENSION Qualifiers: Hypertension type: secondary to endocrine disorders Qualified Code(s): I15.2 - Hypertension secondary to endocrine disorders Comment/Plan: Keep SBP above 140, cut back lisinopril to 10 mgdaily (4) Atrial fibrillation with normal ventricular rate Chronic I48.91 - UNSPECIFIED ATRIAL FIBRILLATION Comment/Plan: rate controlled.Keep K more than 4 magnesium more than 2 (5) Diabetes mellitus Acute E11.9 - TYPE 2 DIABETES MELLITUS WITHOUT COMPLICATIONS Qualifiers: Diabetes mellitus type: type 2 Diabetes mellitus complication status: with neurologic complications Diabetes mellitus complication detail: with polyneuropathy Diabetic retinopathy severity: D Proliferative retinopathy type: P Diabetes mellitus macular edema: D Diabetes mellitus chcf insulin use: with terminologist use Laterality: L Chronic kidney disease stage: C Qualified Code(s): E11.42 - Type 2 diabetes mellitus with diabetic polyneuropathy; Z79.4 - 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 Change Flomax dosing to HS, keep SBP greater than 140. Continue falls and safety precautions. 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 Will likely require short-term rehab. Case Care Discussed with: Patient, Consultants, Family, Nursing Staff Education/Counseling Given To: Patient Education/Counseling Given Regarding: Diagnosis, Treatment, Prognosis, Follow Up Total Time: 45 min . Critical Care: No Code: 66389 (12+)
[2016-09-27] MEDS: D5-1/2NS/KCL 20 mEq 1,000 ML IV SCH (17:54)
[2016-09-27] MEDS: ENOXAPARIN 40 MG/0.4 ML PFS SQ SCH (17:55)
[2016-09-27] MEDS: PRAVASTATIN 20 MG TAB PO SCH (21:23)
[2016-09-27] MEDS: TEMAZEPAM 15 MG CAP PO SCH (21:23)
[2016-09-27] MEDS: SERTRALINE HCL 100 MG TAB PO SCH (21:23)
[2016-09-27] MEDS: TAMSULOSIN HCL 0.4 MG CAP PO SCH (21:23)
[2016-09-28] MEDS: REGULAR INSULIN 100 UNITS/ML - 3 ML VIAL SQ SCH ×2 (04:09→13:27)
[2016-09-28] MEDS: SODIUM CHLORIDE 0.9% 3 ML FLUSH FLUSH SCH (04:09)
[2016-09-28] MEDS: PANTOPRAZOLE 40 MG TAB PO SCH (04:09)
[2016-09-28 07:10] VITALS: TEMP 97.5
[2016-09-28] MEDS ORDERED: BARIUM SULFATE 700 MG TABLET ONE (08:20)
[2016-09-28] MEDS ORDERED: [UNRECOGNIZED DRUG - OTHER] ONE (08:20)
[2016-09-28] MEDS ORDERED: [UNRECOGNIZED DRUG - OTHER] ONE (08:20)
[2016-09-28] MEDS ORDERED: BARIUM SULFATE ONE (08:20)
[2016-09-28] MEDS ORDERED: ERGOCALCIFEROL (VITAMIN D2) 50000 UNITS CAP PO SCH (09:00)
--- NOTE | 2016-09-28 09:50 | DIRPT ---
CLINICAL DATA: 85-year-old patient with liquid greater than solid dysphagia and the sensation of food and pills sticking in the throat and upper esophagus. These symptoms are chronic, but have significantly worsened recently. EXAM: ESOPHOGRAM/BARIUM SWALLOW TECHNIQUE: Single contrast examination was performed using thin barium. A 13 mm barium sulfate tablet was also administered. FLUOROSCOPY TIME: Radiation Exposure Index (as provided by the fluoroscopic device): 112.37 mGy Fluoroscopy Time: 2 min 30 sec Number of Acquired Images: 0 COMPARISON: None. FINDINGS: Due to the patient's generalized debilitation and fall risk, the examination was performed in the supine LPO position using thin barium liquid. The patient swallowed the thin liquid with some difficulty in initiating the swallowing mechanism. Evaluation of the pharynx during rapid sequence imaging with swallows of thin barium liquid demonstrate a mildly prominent cricopharyngeus muscle causing posterior indentation of the upper cervical esophagus, though this does not cause obstruction. No visible laryngeal penetration or tracheal aspiration on this examination. Severe esophageal dysmotility is present, with loss of the primary peristaltic wave in the upper thoracic esophagus and innumerable tertiary esophageal contractions throughout the examination, with intermittent to and fro esophageal motion. Small hiatal hernia with a widely patent Schatzki's ring. No fixed esophageal strictures or masses. I had the patient sit up and swallow the barium tablet, which he did with only minimal difficulty. The tablet paused at several places in the esophagus due to the dysmotility, but ultimately passed into the stomach without obstruction. IMPRESSION: 1. Severe esophageal dysmotility, likely accounting for the patient's symptoms. 2. Small hiatal hernia with widely patent Schatzki's ring. The 13 mm barium tablet passed through the esophagus without obstruction, though did intermittently pause in the esophagus due to dysmotility. 3. No fixed esophageal strictures or masses. 4. Mildly prominent cricopharyngeus muscle. Preliminary results were discussed with the patient and his at the time of the examination. Results were discussed by telephone with Dr. Holley on 09/28/2016 at 9:45 a.m. Electronically Signed By: Yang [place] M.D. On: 09/28/2016 09:45
[2016-09-28] MEDS: CLOPIDOGREL 75 MG TAB PO SCH (10:41)
[2016-09-28] MEDS: FINASTERIDE 5 MG TAB PO SCH (10:41)
[2016-09-28] MEDS: INSULIN DETEMIR 100 UNITS/ML PEN SQ SCH (10:41)
[2016-09-28 11:25] VITALS: BP 112/58
--- NOTE | 2016-09-28 13:09 | PCM.DCS92 ---
- Final/Secondary Discharge Diagnosis (1) CVA (cerebral vascular accident) Ruled-out I63.9 - CEREBRAL INFARCTION, UNSPECIFIED Present on Admission: Yes C basilar artery L Comment: Continue aspirin and Plavix. Overall symptoms improved (2) Dysphagia Acute R13.10 - DYSPHAGIA, UNSPECIFIED Present on Admission: Yes oropharyngeal phase R13.12 - Dysphagia, oropharyngeal phase Comment: Related to severe esophageal dysmotility disorder. Continue aspiration precautions and special diet. (3) Hypertension Chronic I10 - ESSENTIAL (PRIMARY) HYPERTENSION Present on Admission: Yes secondary to endocrine disorders I15.2 - Hypertension secondary to endocrine disorders Comment: Keep SBP above 140, cut back lisinopril to 5 mgdaily (4) Atrial fibrillation with normal ventricular rate Chronic I48.91 - UNSPECIFIED ATRIAL FIBRILLATION Present on Admission: Yes Comment: rate controlled.Keep K more than 4 magnesium more than 2 (5) Diabetes mellitus Acute E11.9 - TYPE 2 DIABETES MELLITUS WITHOUT COMPLICATIONS Present on Admission: Yes type 2 with neurologic complications with polyneuropathy D P D 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 Change Flomax dosing to HS, keep SBP greater than 140. Continue falls and safety precautions. 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 Will likely require short-term rehab. Discharge Disposition: [facility] Facility Discharge Condition: Improved Cognitive Discharge Status: Unimpaired Fuctional Discharge Status: Walker Assistance Physician Follow up/Referrals: None,No Provider [NonStaff] - F/U Facility Physician Home Medications / New Prescriptions: New Tamsulosin HCl [Flomax] 0.4 mg PO HS #30 cap Aspirin (Enteric Coated) [Halfprin] 81 mg PO DAILY #90 tab Calcium Carbonate + Vitamin D [Oscal with Vitamin D] 500 mg PO BID #90 tab Clopidogrel Bisulfate [Plavix] 75 mg PO DAILY #30 tab Lisinopril [Prinivil] 5 mg PO DAILY #30 tab Pantoprazole Sodium [Protonix] 40 mg PO DAILY #30 tab Senna Concentrate [Senokot] 2 tab PO HS #120 tablet Zaleplon [Sonata] 10 mg PO HS PRN #20 capsule PRN Reason: Sleep Or Insomnia Acetaminophen [Tylenol] 650 mg PO QID #120 tablet Ondansetron HCl [Zofran] 4 mg PO Q6H PRN #15 tab PRN Reason: Nausea/Vomiting Continue Cyanocobalamin (Vitamin B-12) [Vitamin B-12] 100 mcg PO HS Finasteride 5 mg PO QAM Insulin Detemir [Levemir] 16 units SQ QAM Furosemide 20 mg PO QAM PRN PRN Reason: Swelling In Feet/Legs Pravastatin [Pravachol] 20 mg PO HS Aspirin [Jessica Aspirin] 325 mg PO HS Ergocalciferol (Vitamin D2) [Vitamin D] 50,000 units PO Th@0900 Sertraline HCl [Zoloft] 100 mg PO QHS Discontinued Tamsulosin HCl [Flomax] 0.4 mg PO QAM Lisinopril/Hydrochlorothiazide [Lisinopril-Hctz 20-25 mg Tab] 1 each PO .DAILY AT NOON O2 Device: Room Air Diet at Discharge: Cardiac, Heart Healthy, Diabetic, 2200 Calorie, High Fiber Activity: As Tolerated, Limited Call Office For: Worsening Symptoms Discontinue use of:: Alcohol, All Illegal Substances, All Types of Tobacco - DC Summary Notes Hospital Course Note:: Discharge summary on patient named JINNY SCHNEIDER admitted to [facility] on 09/24/16 by Adali Upton MD. Date of discharge is []. Patient was initially brought to emergency room on September 24 for evaluation of sudden onset of slurring of the speech right-sided , slurring of the speech, facial drooling ,confusion and generalized weakness. Please refer to the admission note for further details. Given clinical presentation strong suspicion for acute CVA was raised. Initial head CT showed no acute intracranial abnormalities, tiny remote left basal ganglia infarct. Patient was admitted to monitor bed, treatment full-dose of aspirin was instituted. Stroke workup was undertaken. Carotid Dopplers showed less than 50% bilateral stenosis. MRI of the brain showed no acute abnormality. 2D echo showed EF between 60 65% with elevated LA pressures and mild MR. Clinical situation was discussed with neurologist and Plavix was added to patient therapy. Patient was seen by PT OT and speech therapy. Throughout initial part of hospitalization patient had significant problems with ataxia. It was felt to be partially related to orthostatic hypotension caused by a.m. Flomax dosing. Flomax dose was changed to HS and by the time of discharge patient ataxic symptoms have improved. Patient was seen by speech and subsequently has undergone modified barium swallowing study-this test showed only minimal problems with swallowing and his diet was gradually advanced. Patient seen consultation by GI in regard to upper GI symptoms highly suggestive of esophageal stricture and barium swallow showed dysmotility disorder. Patient neurological symptoms have slowly improved and by time of discharge completely resolved. His mentation has returned to baseline. Given problems with static hypotension dose of lisinopril were lowered to 5 mg daily. Patient seen by physical therapy and made some progress of therapy, by the time of discharge was only able to take few steps with walker and with assistance. Given significant age related debility ataxia problems with transfers , balance and peripheral neuropathy inpatient skilled therapy was recommended. It was felt that by Sep 28 he has reached maximum benefit of inpatient therapy and in clinically improved condition he has been transferred to [facility] for PT OT and speech therapy. Patient and daughter were kept abreast on clinical progression regular daily basis, discharge plan was status discussed with both of them Total Time: 40 min . Code: 78248 (>30min.) - Physical Exam Vital Signs: Last Vital Signs Temp 97.5 F 09/28/16 11:51 Pulse 74 09/28/16 11:51 Resp 18 09/28/16 11:51 BP 112/58 L 09/28/16 11:51 Pulse Ox 94 09/28/16 11:24 Oxygen Pulse Oxygen Saturation 94 O2 Device Room Air Oxygen Flow Rate Fraction of Inspired Oxygen ( FIO2) Constitutional: Alert, Other (Stares into space. Does answer questions but does so very slowly.) - HEENT Head: Normal Eye: negative: Conjunctival Injection Oropharynx: Membranes Dry. negative: Drooling Tympanic Membrane: Normal ENT EAC: Normal Nose: No Symptoms Reported. negative: Congestion, Discharge - Respiratory/Cardiovascular Respiratory: Diminished, Rhonchi Cardiovascular: Normal - GI Auscultation: Normal Palpation: Normal. negative: Enlarged liver, Enlarged spleen Tenderness: Non tender Rectal Exam: Deferred Stool: Brown - Exam Deferred: Yes - Musculoskeletal Back: Normal. negative: CVA Tenderness Extremities: Normal, Cyanosis, Edema (One to 2+ pitting edema in his lower extremities. He is usually wearing compression hose but does not have them on today) - Integumentary Skin: Normal, Warm Lymphatics: Normal - Neurologic Memory Impaired: Normal, Other (Difficult to test because the patient is very very slow with answering.) Motor Function: Normal Cranial Nerve: Normal Cerebellar: Ataxia. negative: Past-Pointing, Tremor Mood Description: Normal, Anxious, Flat Thought: Coherent, Other (Sentences have normal content.) Perception: Normal Patient Name: JINNY SCHNEIDER Courtesy Copy to: Diagnostic Imaging Report [facility] [address] [facility] [id number] [phone] Diagnostic Imaging Services Courtesy Copy to: Diagnostic Imaging Report Patient Name: JINNY SCHNEIDER LOC: [facility] : 1930 AGE: 85 Order Date:09/24/16 Date of Service: Report # [id number] Ord Physician: Adali Upton MD Exam # [id number] Emergency Physician: Jaxon Hughes DO Exam(s): [id number] US/US CAROTID DUPLEX-BILAT CLINICAL DATA: Speech difficulty and difficulty swallowing. History of hypertension and diabetes. EXAM: BILATERAL CAROTID DUPLEX ULTRASOUND TECHNIQUE: Cristina scale imaging, color Doppler and duplex ultrasound were performed of bilateral carotid and vertebral arteries in the neck. COMPARISON: None. FINDINGS: Criteria: Quantification of carotid stenosis is based on velocity parameters that correlate the residual internal carotid diameter with NASCET-based stenosis levels, using the diameter of the distal internal carotid lumen as the denominator for stenosis measurement. The following velocity measurements were obtained: RIGHT ICA: 82/24 cm/sec CCA: 83/11 cm/sec SYSTOLIC ICA/CCA RATIO: 1.0 DIASTOLIC ICA/CCA RATIO: 2.1 ECA: 87 cm/sec LEFT ICA: 55/20 cm/sec CCA: 84/8 cm/sec SYSTOLIC ICA/CCA RATIO: 0.7 DIASTOLIC ICA/CCA RATIO: 2.4 ECA: 72 cm/sec RIGHT CAROTID ARTERY: The common carotid artery demonstrates intimal thickening. There is evidence of a mild amount of calcified plaque at the level of the carotid bulb and proximal ICA. Velocities and waveforms are normal and estimated right ICA stenosis is less than 50%. RIGHT VERTEBRAL ARTERY: Antegrade flow with normal waveform and velocity. LEFT CAROTID ARTERY: There is a mild amount of calcified plaque in the common carotid artery. Mild amount of plaque is also present at the level of the carotid bulb and extending into the proximal ICA. Velocities and waveforms are normal and estimated left ICA stenosis is less than 50%. LEFT VERTEBRAL ARTERY: Antegrade flow with normal waveform and velocity. IMPRESSION: Plaque at the level of both carotid bulbs, proximal internal carotid arteries and the distal left common carotid artery. Overall plaque volume is mild and estimated bilateral ICA stenoses are less than 50%. Electronically Signed By: Fab Montes M.D. On: 09/26/2016 08:10 Electronically Signed By: Fab Montes MD Electronically Signed Date/Time: [id number] Dictate Date/Time: 09/26/16 0748 Technologist: Annabelle Resendiz Transcribed By: Marissa Transcribed Date/Time: 09/26/16 0810 - Other Exam Other Exam Findings: Allergies No Known Allergies Allergy (Verified 09/24/16 15:58) Discharge Home Medication List Cyanocobalamin (Vitamin B-12) [Vitamin B-12] 100 mcg PO HS 09/03/12 [History Confirmed 09/24/16] Finasteride 5 mg PO QAM 09/03/12 [History Confirmed 09/24/16] Furosemide 20 mg PO QAM PRN 01/15/16 [History Confirmed 09/24/16] Insulin Detemir [Levemir] 16 units SQ QAM 01/15/16 [History Confirmed 09/24/16] Pravastatin [Pravachol] 20 mg PO HS 01/15/16 [History Confirmed 09/24/16] Aspirin [Jessica Aspirin] 325 mg PO HS 09/24/16 [History Confirmed 09/24/16] Ergocalciferol (Vitamin D2) [Vitamin D] 50,000 units PO Th@0900 09/24/16 [ History Confirmed 09/24/16] Sertraline HCl [Zoloft] 100 mg PO QHS 09/25/16 [History Confirmed 09/25/16] Acetaminophen [Tylenol] 650 mg PO QID #120 tablet 09/28/16 [Rx] Aspirin (Enteric Coated) [Halfprin] 81 mg PO DAILY #90 tab 09/28/16 [Rx] Calcium Carbonate + Vitamin D [Oscal with Vitamin D] 500 mg PO BID #90 tab 09/28 [Rx] Clopidogrel Bisulfate [Plavix] 75 mg PO DAILY #30 tab 09/28/16 [Rx] Lisinopril [Prinivil] 5 mg PO DAILY #30 tab 09/28/16 [Rx] Ondansetron HCl [Zofran] 4 mg PO Q6H PRN #15 tab 09/28/16 [Rx] Pantoprazole Sodium [Protonix] 40 mg PO DAILY #30 tab 09/28/16 [Rx] Senna Concentrate [Senokot] 2 tab PO HS #120 tablet 09/28/16 [Rx] Tamsulosin HCl [Flomax] 0.4 mg PO HS #30 cap 09/28/16 [Rx] Zaleplon [Sonata] 10 mg PO HS PRN #20 capsule 09/28/16 [Rx] New Discharge Medications (Rx) Acetaminophen [Tylenol] 650 mg PO QID #120 tablet 09/28/16 [Rx] Aspirin (Enteric Coated) [Halfprin] 81 mg PO DAILY #90 tab 09/28/16 [Rx] Calcium Carbonate + Vitamin D [Oscal with Vitamin D] 500 mg PO BID #90 tab 09/28 [Rx] Clopidogrel Bisulfate [Plavix] 75 mg PO DAILY #30 tab 09/28/16 [Rx] Lisinopril [Prinivil] 5 mg PO DAILY #30 tab 09/28/16 [Rx] Ondansetron HCl [Zofran] 4 mg PO Q6H PRN #15 tab 09/28/16 [Rx] Pantoprazole Sodium [Protonix] 40 mg PO DAILY #30 tab 09/28/16 [Rx] Senna Concentrate [Senokot] 2 tab PO HS #120 tablet 09/28/16 [Rx] Tamsulosin HCl [Flomax] 0.4 mg PO HS #30 cap 09/28/16 [Rx] Zaleplon [Sonata] 10 mg PO HS PRN #20 capsule 09/28/16 [Rx] Home Medications Cyanocobalamin (Vitamin B-12) [Vitamin B-12] 100 mcg PO HS 09/03/12 Finasteride 5 mg PO QAM 09/03/12 Furosemide 20 mg PO QAM PRN 01/15/16 Insulin Detemir [Levemir] 16 units SQ QAM 01/15/16 Pravastatin [Pravachol] 20 mg PO HS 01/15/16 Aspirin [Jessica Aspirin] 325 mg PO HS 09/24/16 Ergocalciferol (Vitamin D2) [Vitamin D] 50,000 units PO Th@0900 09/24/16 Sertraline HCl [Zoloft] 100 mg PO QHS 09/25/16 Acetaminophen [Tylenol] 650 mg PO QID #120 tablet 09/28/16 Aspirin (Enteric Coated) [Halfprin] 81 mg PO DAILY #90 tab 09/28/16 Calcium Carbonate + Vitamin D [Oscal with Vitamin D] 500 mg PO BID #90 tab 09/28 Clopidogrel Bisulfate [Plavix] 75 mg PO DAILY #30 tab 09/28/16 Lisinopril [Prinivil] 5 mg PO DAILY #30 tab 09/28/16 Ondansetron HCl [Zofran] 4 mg PO Q6H PRN #15 tab 09/28/16 Pantoprazole Sodium [Protonix] 40 mg PO DAILY #30 tab 09/28/16 Senna Concentrate [Senokot] 2 tab PO HS #120 tablet 09/28/16 Tamsulosin HCl [Flomax] 0.4 mg PO HS #30 cap 09/28/16 Zaleplon [Sonata] 10 mg PO HS PRN #20 capsule 09/28/16 Abnormal Lab Results 09/27/16 09/27/16 09/28/16 17:25 19:17 04:12 POC Capillary Glucose 169 H 178 H 143 H 09/28/16 11:32 POC Capillary Glucose 133 H 09/24/16 11:00 09/24/16 11:00 Abnormal Lab Results 09/27/16 09/27/16 09/28/16 17:25 19:17 04:12 POC Capillary Glucose 169 H 178 H 143 H 09/28/16 11:32 POC Capillary Glucose 133 H Microbiology 09/24/16 12:45 Urine - Clean Catch - Midstream Urine Culture - Final No growth <10,00O CFU/ml Active Problems Diabetes mellitus (Acute) E11.9 Continue ADA diet Levemir and sliding scale regular insulin Dysphagia (Acute) R13.10 Passed swallowing test. Follow by speech therapy. For barium swallow tomorrow Hypertension (Acute) I10 Keep SBP above 140, cut back lisinopril to 10 mgdaily TIA (transient ischemic attack) (Acute) G45.9 VBI (vertebrobasilar insufficiency) (Acute) G45.0 Patient imbalance most likely related to VBI aggravated by orthostatic hypotension related to Flomax. Change Flomax dosing to HS, keep SBP greater than 140. Continue falls and safety precautions. May need compression stockings as well Vertigo (Acute) R42 The patient has developed this as his speech has improved. It is difficult to believe the dose to symptoms are not related however his MRI is normal. Will start him on some Ativan twice a day to see if it improves his symptoms of dizziness. Ultrasound of his carotid/vertebrals is still pending. 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 Will have PT see the patient. Senile debility (Chronic) R54 Assist with ADLs and with transfers. Will likely require short-term rehab. Ruled-out Problems CVA (cerebral vascular accident) (Ruled-out) I63.9 Continue aspirin and Plavix. Overall symptoms improved Last Vital Signs Temp 97.5 F 09/28/16 11:51 Pulse 74 09/28/16 11:51 Resp 18 09/28/16 11:51 BP 112/58 L 09/28/16 11:51 Pulse Ox 94 09/28/16 11:24 Patient Name: JINNY SCHNEIDER LOC: [facility] : 1930 AGE: 85 Order Date:09/27/16 Date of Service: Report # [id number] Ord Physician: Aren Holley MD Exam # [id number] Emergency Physician: Jaxon Hughes DO Exam(s): [id number] RAD/DG BARIUM SWALLOW CLINICAL DATA: 85-year-old patient with liquid greater than solid dysphagia and the sensation of food and pills sticking in the throat and upper esophagus. These symptoms are chronic, but have significantly worsened recently. EXAM: ESOPHOGRAM/BARIUM SWALLOW TECHNIQUE: Single contrast examination was performed using thin barium. A 13 mm barium sulfate tablet was also administered. FLUOROSCOPY TIME: Radiation Exposure Index (as provided by the fluoroscopic device): 112.37 mGy Fluoroscopy Time: 2 min 30 sec Number of Acquired Images: 0 COMPARISON: None. FINDINGS: Due to the patient's generalized debilitation and fall risk, the examination was performed in the supine LPO position using thin barium liquid. The patient swallowed the thin liquid with some difficulty in initiating the swallowing mechanism. Evaluation of the pharynx during rapid sequence imaging with swallows of thin barium liquid demonstrate a mildly prominent cricopharyngeus muscle causing posterior indentation of the upper cervical esophagus, though this does not cause obstruction. No visible laryngeal penetration or tracheal aspiration on this examination. Severe esophageal dysmotility is present, with loss of the primary peristaltic wave in the upper thoracic esophagus and innumerable tertiary esophageal contractions throughout the examination, with intermittent to and fro esophageal motion. Small hiatal hernia with a widely patent Schatzki's ring. No fixed esophageal strictures or masses. I had the patient sit up and swallow the barium tablet, which he did with only minimal difficulty. The tablet paused at several places in the esophagus due to the dysmotility, but ultimately passed into the stomach without obstruction. IMPRESSION: 1. Severe esophageal dysmotility, likely accounting for the patient's symptoms. 2. Small hiatal hernia with widely patent Schatzki's ring. The 13 mm barium tablet passed through the esophagus without obstruction, though did intermittently pause in the esophagus due to dysmotility. 3. No fixed esophageal strictures or masses. 4. Mildly prominent cricopharyngeus muscle. Preliminary results were discussed with the patient and his at the time of the examination. Results were discussed by telephone with Dr. Holley on 09/28/2016 at 9:45 a.m. Electronically Signed By: Yang [place] M.D. On: 09/28/2016 09:45 Patient Name: JINNY SCHNEIDER LOC: [facility] : 1930 AGE: 85 Order Date:09/25/16 Date of Service: Report # [id number] Ord Physician: Adali Upton MD Exam # [id number] Emergency Physician: Jaxon Hughes DO Exam(s): [id number] MRI/MRI HEAD WITH WITHOUT CM CLINICAL DATA: Stroke. Speech changes. Inability to swallow. EXAM: MRI HEAD WITHOUT AND WITH CONTRAST TECHNIQUE: Multiplanar, multiecho pulse sequences of the brain and surrounding structures were obtained without and with intravenous contrast. CONTRAST: 20 mL MultiHance COMPARISON: Head CT 09/24/2016 FINDINGS: The study is mildly motion degraded throughout. There is no evidence of acute infarct, intracranial hemorrhage, mass, midline shift, or extra-axial fluid collection. Mild generalized cerebral atrophy is within normal limits for age. Subcortical and periventricular cerebral white matter T2 hyperintensities are nonspecific but compatible with minimal chronic small vessel ischemic disease, less than is often seen in patients of this age. Small T2 hyperintensities in the left lentiform nucleus are favored to reflect mildly dilated perivascular spaces. No definite abnormal enhancement is identified. Small focus of increased signal in the posterior left temporal lobe on axial postcontrast images is not confirmed on the coronal sequence and is favored to be artifactual. Prior bilateral cataract extraction is noted. Paranasal sinuses and mastoid air cells are clear. Major intracranial vascular flow voids are preserved. IMPRESSION: Mildly motion degraded examination without acute intracranial abnormality identified. Electronically Signed By: Eduardo Richter M.D. On: 09/25/2016 13:21
[2016-09-28] MEDS: LISINOPRIL 10 MG TAB PO SCH (13:33)
[2016-09-28 14:54] VITALS: PULSE 70
[2016-10-02 12:37] LABS: DILUTE RUSSELL'S VIPER VENOM 39.7 sec (0.0-44.0)
[2016-10-02 13:24] LABS: INTERPRETATION Comment: (.); PROTEIN S(FUNCTIONAL) 118 % (63-140)
== END 2016-09-28 16:22 | DRG 69 ==
LOC: ED 10:38 → PCU 13:33
PROVIDERS: ADMIT Family Medicine; ATTEND Internal Medicine
DX: G45.9 Transient cerebral ischemic attack, unspecified (principal); E11.42 Type 2 diabetes mellitus with diabetic polyneuropathy; I50.9 Heart failure, unspecified; R13.12 Dysphagia, oropharyngeal phase; I48.91 Unspecified atrial fibrillation; K22.4 Dyskinesia of esophagus; I15.2 Hypertension secondary to endocrine disorders; Z79.4 Long term (current) use of insulin; G45.0 Vertebro-basilar artery syndrome; K21.9 Gastro-esophageal reflux disease without esophagitis; R54 Age-related physical debility; I95.2 Hypotension due to drugs; T44.6X5A Adverse effect of alpha-adrenoreceptor antagonists, initial encounter; E78.00 Pure hypercholesterolemia, unspecified; M19.90 Unspecified osteoarthritis, unspecified site; Z79.899 Other long term (current) drug therapy; R26.9 Unspecified abnormalities of gait and mobility
CPT/HCPCS: 36415; 70450; 70553; 71010; 74220; 80053; 80061; 81001; 81240; 81241; 82043; 82962; 83036; 83090; 84443; 84484; 85025; 85300; 85303; 85306; 85384; 85610; 85613; 85651; 85730; 85732; 86038; 86147; 86592; 87086; 93005; 93306; 93880; 96372; 97162; 97165; 99285; A9577; J1650; J3490; J7070

== ENCOUNTER 2016-10-01 09:50 | Inpatient (IN) | payer MEDICARE ==
[2016-10-01 10:13] LABS: AUTOMATED BASOPHIL 0.1 % (0-2); AUTOMATED EOSINOPHIL 0.7 % (0-5); AUTOMATED LYMPH 13.3 % (17-44); AUTOMATED MONOCYTE 9.8 % (3-10); AUTOMATED NEUTROPHIL 76.1 % (45-76); MPV 9.8 fL (7.4-10.4)
[2016-10-01 10:23] LABS: BLOOD UREA NITROGEN 28 MG/DL (9-20); CALC CORRECTED 9.7 MG/DL (8.4-10.2); CALCIUM 9.5 MG/DL (8.4-10.2); CALCULATED OSMOLALITY 280 MOs/Kg (270-290); CHLORIDE 105 mEq/L (98-107); GLUCOSE 146 MG/DL (70-99); SODIUM LEVEL 141 mEq/L (137-146); TOTAL PROTEIN 7.1 G/DL (6.3-8.2)
--- NOTE | 2016-10-01 10:27 | DIRPT ---
CLINICAL DATA: Altered mental status EXAM: PORTABLE CHEST 1 VIEW COMPARISON: 09/24/2016 FINDINGS: Cardiac shadow is mildly enlarged but stable. The lungs are well aerated and demonstrate bibasilar infiltrate. No sizable effusion is seen. No bony abnormality is noted. IMPRESSION: Bibasilar infiltrates. Electronically Signed By: Eduardo Bernal M.D. On: 10/01/2016 10:25
[2016-10-01 10:37] LABS: PARTIAL THROMB. TIME 26.1 SEC (22-35)
[2016-10-01 10:40] LABS: LEUKOCYTES/URINE NEG (NEGATIVE); NITRITE/URINE NEG (NEGATIVE); URINE OCCULT BLOOD NEG (NEG/TRACE); WBC/URINE 0-2 (0-2)
--- NOTE | 2016-10-01 10:51 | DIRPT ---
CLINICAL DATA: Slurred speech, altered mental status EXAM: CT HEAD WITHOUT CONTRAST TECHNIQUE: Contiguous axial images were obtained from the base of the skull through the vertex without contrast. COMPARISON: 09/24/2016 FINDINGS: Stable brain atrophy and chronic white matter microvascular ischemic changes about the ventricles. Stable symmetric ventricles. No acute intracranial hemorrhage, mass lesion, definite infarction, midline shift, herniation, or hydrocephalus. No focal mass effect or edema. Cisterns are patent. Cerebellar atrophy as well. Orbits are symmetric. Mastoids and sinuses remain clear. IMPRESSION: Stable atrophy pattern and chronic white matter ischemic change. No interval change or acute process by noncontrast CT. Electronically Signed By: Jennifer Hodge M.D. On: 10/01/2016 10:49
--- NOTE | 2016-10-01 11:39 | EDPRACDOC ---
- General Information Chief Complaint: Altered Mental Status Stated Complaint: STROKE Time Seen by Provider: 10/01/16 10:03 Information Source: Patient, [facility] [employer] Home Medications: Home Medications Cyanocobalamin (Vitamin B-12) [Vitamin B-12] 100 mcg PO HS 09/03/12 Finasteride 5 mg PO QAM 09/03/12 Furosemide 20 mg PO QAM PRN 01/15/16 Insulin Detemir [Levemir] 16 units SQ QAM 01/15/16 Pravastatin [Pravachol] 20 mg PO HS 01/15/16 Ergocalciferol (Vitamin D2) [Vitamin D] 50,000 units PO Th@0900 09/24/16 Sertraline HCl [Zoloft] 100 mg PO QHS 09/25/16 Acetaminophen [Tylenol] 650 mg PO QID #120 tablet 09/28/16 Aspirin (Enteric Coated) [Halfprin] 81 mg PO DAILY #90 tab 09/28/16 Calcium Carbonate + Vitamin D [Oscal with Vitamin D] 500 mg PO BID #90 tab 09/28 Clopidogrel Bisulfate [Plavix] 75 mg PO DAILY #30 tab 09/28/16 Lisinopril [Prinivil] 5 mg PO DAILY #30 tab 09/28/16 Ondansetron HCl [Zofran] 4 mg PO Q6H PRN #15 tab 09/28/16 Pantoprazole Sodium [Protonix] 40 mg PO DAILY #30 tab 09/28/16 Senna Concentrate [Senokot] 2 tab PO HS #120 tablet 09/28/16 Tamsulosin HCl [Flomax] 0.4 mg PO HS #30 cap 09/28/16 Zaleplon [Sonata] 10 mg PO HS PRN #20 capsule 09/28/16 Allergies/Adverse Reactions: Allergies Allergy/AdvReac Type Severity Reaction Status Date / Time No Known Allergies Allergy Verified 09/24/16 15:58 - History of Present Illness Onset: 829 HPI: C/o slurred speech starting this morning per pt and nursing facility staff. No other specific HPI available at this time. Pt otherwise has no complaints. Hx of recent TIA 1 week ago. Symptoms began: Suddenly Duration: Since Onset Symptoms Currently: Reports: Still Present Altered Severity: Reports: Mild Recent Symptoms of: Reports: None Relevant History: Reports: CVA (TIA), Diabetes, On insulin Prehospital: Reports: [facility] [employer] Associated signs and symptoms: Reports: Slurred speech - Treatment Prior to ED Arrival Reported Medications/Treatment [facility] Treatment BLS IV Yes ED Past Medical History - History Reviewed Yes Nurses notes reviewed and agree except as marked - Patient Medical History Neurological History: Reports: Cerebrovascular Accident. Denies: Guillian- [place] Syndrome, Parkinson's, Metabolic encephalopathy Cardiac History: Reports: Coronary Artery Disease, Atrial Fibrillation, Hypertension, Congestive Heart Failure, Hypercholesterolemia. Denies: Syncope Respiratory History: Reports: Cough GI/ History: Reports: Renal Disease (CKD STAGE IV per old records), Gastroesophageal Reflux Musculoskeletal History: Reports: Arthritis, Osteoarthritis Psychological History: Denies: Depression, Substance Use Disorder Systemic History: Reports: Diabetes. Denies: Cancer Surgical History: Reports: Hernia Surgery (Right inguinal hernia repair in 2009) - Family Medical History Reports: Cardiac Disorders (Father of congestive heart failure.) - Social Medical History Smoking Status: Never smoker Social History: Denies: Substance Use Disorder EDM Review of Systems - Review of Systems ROS Negative Except as Marked: Yes All systems reviewed and were negative except as marked Neurological: Speech Difficulty - Physical Exam Constitutional: No apparent distress, Alert Oriented to: Time, Person, Place Last recorded Vital Signs: Last Vital Signs Temp 98.3 F 10/01/16 09:53 Pulse 80 10/01/16 11:10 Resp 18 10/01/16 11:10 BP 112/60 10/01/16 11:10 Pulse Ox 94 10/01/16 11:10 Oxygen Pulse Oxygen Saturation 94 O2 Device Room Air Oxygen Flow Rate Fraction of Inspired Oxygen ( FIO2) - HEENT Head: Normal Eye Exam: negative: Conjunctival Injection, Scleral Icterus Oropharynx: negative: Drooling Nose: No Symptoms Reported Neck: Normal - Respiratory/Cardiovascular Respiratory: Normal - CTA Cardiovascular: Normal - GI Auscultation: Normal Palpation: Normal Tenderness: Non tender - Musculoskeletal Back: Normal Extremities: Normal - Integumentary Skin: Normal - Neurologic Mood Description: Normal Thought: Coherent Perception: Normal Initial Evaluation Apperance: Neat Attitude: Cooperative Mood: Euthymic Affect: Congruent w/ mood Insight: Good Judgement: Good Memory Description: Intact Delusion Description: Reports: Not Present Hallucination Type: Reports: None Hallucinations Severity: Reports: None Hallucinations affecting more than one sensory system: No - Results 10/01/16 09:55 10/01/16 09:55 WBC 7.1 xk/uL (3.8-10.8) 10/01/16 09:55 RBC 3.82 xM/uL (4.70-6.10) L 10/01/16 09:55 Hgb 11.5 g/dL (14.0-18.0) L 10/01/16 09:55 Hct 34.7 % (42-52) L 10/01/16 09:55 MCV 91 fL (80-94) 10/01/16 09:55 MCH 30.0 pg (27-32) 10/01/16 09:55 MCHC 33.1 g/dl (33-36) 10/01/16 09:55 RDW 14.7 % (11.5-14.5) H 10/01/16 09:55 Plt Count 187 xk/uL (130-400) 10/01/16 09:55 MPV 9.8 fL (7.4-10.4) 10/01/16 09:55 Neut % (Auto) 76.1 % (45-76) H 10/01/16 09:55 Lymph % (Auto) 13.3 % (17-44) L 10/01/16 09:55 [place] % (Auto) 9.8 % (3-10) 10/01/16 09:55 Eos % (Auto) 0.7 % (0-5) 10/01/16 09:55 Baso % (Auto) 0.1 % (0-2) 10/01/16 09:55 Absolute Neuts (auto) 5.40 xk/uL (1.7-8.2) 10/01/16 09:55 Absolute Lymphs (auto) 0.92 xk/uL (0.65-4.75) 10/01/16 09:55 PT 10.7 SEC (9.2-11.2) 10/01/16 09:55 INR 1.0 10/01/16 09:55 APTT 26.1 SEC (22-35) 10/01/16 09:55 Sodium 141 mEq/L (137-146) 10/01/16 09:55 Potassium 4.0 mEq/L (3.5-5.1) 10/01/16 09:55 Chloride 105 mEq/L (98-107) 10/01/16 09:55 Carbon Dioxide 27 mMOL/L (22-33) 10/01/16 09:55 Anion Gap 13 mEq/L (8-16) 10/01/16 09:55 BUN 28 MG/DL (9-20) H 10/01/16 09:55 Creatinine 0.90 MG/DL (0.66-1.25) 10/01/16 09:55 Estimated GFR (MDRD) > 60 mL/min (>=60) 10/01/16 09:55 Glucose 146 MG/DL (70-99) H 10/01/16 09:55 Calculated Osmolality 280 MOs/Kg (270-290) 10/01/16 09:55 Calcium 9.5 MG/DL (8.4-10.2) 10/01/16 09:55 Corrected Calcium 9.7 MG/DL (8.4-10.2) 10/01/16 09:55 Total Bilirubin 0.9 MG/DL (0.2-1.3) 10/01/16 09:55 AST 30 IU/L (17-59) 10/01/16 09:55 ALT 41 IU/L (21-72) 10/01/16 09:55 Alkaline Phosphatase 100 IU/L (50-160) 10/01/16 09:55 Troponin I 0.13 ng/mL (<.04) 10/01/16 09:55 Swn-Q-Lgrjtmjfuuw Pept 4120 pg/mL (0-1800) H 10/01/16 09:55 Total Protein 7.1 G/DL (6.3-8.2) 10/01/16 09:55 Albumin 3.8 G/DL (3.5-5.0) 10/01/16 09:55 Urine Color Yellow 10/01/16 10:20 Urine Clarity Clear 10/01/16 10:20 Urine pH 5.0 (5.0-8.0) 10/01/16 10:20 Ur Specific [place] 1.025 (1.003-1.035) 10/01/16 10:20 Urine Protein 1+ (NEG/TRACE) H 10/01/16 10:20 Urine Glucose (UA) Neg (NEGATIVE) 10/01/16 10:20 Urine Ketones Neg (NEGATIVE) 10/01/16 10:20 Urine Occult Blood Neg (NEG/TRACE) 10/01/16 10:20 Urine Nitrite Neg (NEGATIVE) 10/01/16 10:20 Urine Bilirubin Neg (NEGATIVE) 10/01/16 10:20 Urine Urobilinogen <2.0 MG/DL (0-1) 10/01/16 10:20 Ur Leukocyte Esterase Neg (NEGATIVE) 10/01/16 10:20 Urine RBC 2-5 (0-2) H 10/01/16 10:20 Urine WBC 0-2 (0-2) 10/01/16 10:20 Ur Epithelial Cells 1+ 10/01/16 10:20 Urine Bacteria Few (NEG/FEW) 10/01/16 10:20 Hyaline Casts 0-2 (0-2) 10/01/16 10:20 Urine Mucus Occ (NEG/OCC) 10/01/16 10:20 Lab Results 10/01/16 10/01/16 10/01/16 10:20 09:55 09:55 WBC 7.1 RBC 3.82 L Hgb 11.5 L Hct 34.7 L MCV 91 MCH 30.0 MCHC 33.1 RDW 14.7 H Plt Count 187 MPV 9.8 Neut % (Auto) 76.1 H Lymph % (Auto) 13.3 L [place] % (Auto) 9.8 Eos % (Auto) 0.7 Baso % (Auto) 0.1 Absolute Neuts (auto) 5.40 Absolute Lymphs (auto) 0.92 PT 10.7 INR 1.0 APTT 26.1 Sodium Potassium Chloride Carbon Dioxide Anion Gap BUN Creatinine Estimated GFR (MDRD) Glucose Calculated Osmolality Calcium Corrected Calcium Total Bilirubin AST ALT Alkaline Phosphatase Troponin I Tsb-C-Xpspgrfcbuu Pept Total Protein Albumin Urine Color Yellow Urine Clarity Clear Urine pH 5.0 Ur Specific [place] 1.025 Urine Protein 1+ H Urine Glucose (UA) Neg Urine Ketones Neg Urine Occult Blood Neg Urine Nitrite Neg Urine Bilirubin Neg Urine Urobilinogen <2.0 Ur Leukocyte Esterase Neg Urine RBC 2-5 H Urine WBC 0-2 Ur Epithelial Cells 1+ Urine Bacteria Few Hyaline Casts 0-2 Urine Mucus Occ 10/01/16 09:55 WBC RBC Hgb Hct MCV MCH MCHC RDW Plt Count MPV Neut % (Auto) Lymph % (Auto) [place] % (Auto) Eos % (Auto) Baso % (Auto) Absolute Neuts (auto) Absolute Lymphs (auto) PT INR APTT Sodium 141 Potassium 4.0 Chloride 105 Carbon Dioxide 27 Anion Gap 13 BUN 28 H Creatinine 0.90 Estimated GFR (MDRD) > 60 Glucose 146 H Calculated Osmolality 280 Calcium 9.5 Corrected Calcium 9.7 Total Bilirubin 0.9 AST 30 ALT 41 Alkaline Phosphatase 100 Troponin I 0.13 Qqn-M-Sxtwnwnirex Pept 4120 H Total Protein 7.1 Albumin 3.8 Urine Color Urine Clarity Urine pH Ur Specific [place] Urine Protein Urine Glucose (UA) Urine Ketones Urine Occult Blood Urine Nitrite Urine Bilirubin Urine Urobilinogen Ur Leukocyte Esterase Urine RBC Urine WBC Ur Epithelial Cells Urine Bacteria Hyaline Casts Urine Mucus - EKG EKG #1 EKG Time: 09:59 Rate: bpm: 86 [place]: LAD Rhythm: Afib Block: RBBB Hypertrophy: None ST: Nonsp Comparison: 09/24/16 (Afib, RBBB) - Diagnostic Imaging Head Image interpreted by: Radiologist EXAM: CT HEAD WITHOUT CONTRAST TECHNIQUE: Contiguous axial images were obtained from the base of the skull through the vertex without contrast. COMPARISON: 09/24/2016 FINDINGS: Stable brain atrophy and chronic white matter microvascular ischemic changes about the ventricles. Stable symmetric ventricles. No acute intracranial hemorrhage, mass lesion, definite infarction, midline shift, herniation, or hydrocephalus. No focal mass effect or edema. Cisterns are patent. Cerebellar atrophy as well. Orbits are symmetric. Mastoids and sinuses remain clear. IMPRESSION: Stable atrophy pattern and chronic white matter ischemic change. No interval change or acute process by noncontrast CT. Electronically Signed By: Jennifer Hodge M.D. On: 10/01/2016 10:49 Chest Image interpreted by: Radiologist EXAM: PORTABLE CHEST 1 VIEW COMPARISON: 09/24/2016 FINDINGS: Cardiac shadow is mildly enlarged but stable. The lungs are well aerated and demonstrate bibasilar infiltrate. No sizable effusion is seen. No bony abnormality is noted. IMPRESSION: Bibasilar infiltrates. Electronically Signed By: Eduardo Bernal M.D. On: 10/01/2016 10:25 - Departure Disposition: Admit IP To This Hospital Condition: Stable Final Diagnosis: History of recurrent TIAs Pneumonia Qualifiers: Pneumonia type: due to unspecified organism Laterality: bilateral Lung location : lower lobe of lung Qualified Code(s): J18.9 - Pneumonia, unspecified organism Decision to Admit Time: 11:38 (Dr Hughes) Decision to admit date: 10/01/16 Decision to admit: from ED
[2016-10-01] MEDS ORDERED: GLUCOSE (ORAL GEL) 15 GM TUBE PO PRN (11:51)
[2016-10-01] MEDS ORDERED: GLUCAGON 1 MG VIAL SQ PRN (11:51)
[2016-10-01] MEDS ORDERED: Albuterol/Ipratropium Neb 3 ML NEB NEB PRN (11:51)
[2016-10-01] MEDS ORDERED: FUROSEMIDE 20 MG TAB PO PRN (11:57)
[2016-10-01] MEDS ORDERED: Non-Formulary Medication ITEM (Ondansetron Hcl [Zofran] 4 MG) PO PRN (11:57)
[2016-10-01] MEDS ORDERED: ENOXAPARIN 40 MG/0.4 ML PFS SQ SCH (12:00)
[2016-10-01] MEDS ORDERED: NS 1,000 ML IV SCH (12:00)
--- NOTE | 2016-10-01 12:01 | HISTPHYS ---
- Chief Complaint Slurring of the speech confusion. - History of Present Illness 85 yowm brought to emergency room [facility] on from [facility] for evaluation of sudden onset of profound slurring of speech and confusion. Patient was recently hospitalized at [facility] for stroke symptoms, his initial presentation was left-sided weakness ataxia and profound slurring of the speech with left-sided facial droop. MRI was negative for acute stroke. Carotid Dopplers showed less than 50% stenosis. During the 1st hospitalization family reported the patient was taken off Coumadin due significant risk of falls , Coumadin was replaced with aspirin. Case was discussed with Dr. Mendoza was recommended combination of aspirin and Plavix. Patient condition has improved, speech returned to normal and he was discharged to [facility] for PT OT and OT. Early on this morning patient has suddenly developed profound slurring of the speech and confusion with left-sided facial droop. He was transferred to emergency room for further evaluation. ED workup was undertaken and medical consult was phoned in for inpatient treatment. - Medical History Cardiac History: Reports: Coronary Artery Disease, Atrial Fibrillation, Hypertension, Congestive Heart Failure, Hypercholesterolemia, Valvular Heart Disease. Denies: Syncope Respiratory History: Reports: Cough GI/ History: Reports: Renal Disease (CKD STAGE IV per old records), Gastroesophageal Reflux, BPH Musculoskeletal History: Reports: Arthritis, Osteoarthritis Systemic History: Reports: Diabetes. Denies: Cancer Neurological History: Reports: Cerebrovascular Accident, Other. Denies: Guillian-[place] Syndrome, Parkinson's, Metabolic encephalopathy Psychological History: Reports: Anxiety. Denies: Depression, Substance Use Disorder - Surgical History Reports: Hernia Surgery (Right inguinal hernia repair in 2009) - Medictions/Allergies Allergies No Known Allergies Allergy (Verified 09/24/16 15:58) Current Medication List: Reviewed Home Medications Cyanocobalamin (Vitamin B-12) [Vitamin B-12] 100 mcg PO HS 09/03/12 Finasteride 5 mg PO QAM 09/03/12 Furosemide 20 mg PO QAM PRN 01/15/16 Insulin Detemir [Levemir] 16 units SQ QAM 01/15/16 Pravastatin [Pravachol] 20 mg PO HS 01/15/16 Ergocalciferol (Vitamin D2) [Vitamin D] 50,000 units PO Th@0900 09/24/16 Sertraline HCl [Zoloft] 100 mg PO QHS 09/25/16 Acetaminophen [Tylenol] 650 mg PO QID #120 tablet 09/28/16 Aspirin (Enteric Coated) [Halfprin] 81 mg PO DAILY #90 tab 09/28/16 Calcium Carbonate + Vitamin D [Oscal with Vitamin D] 500 mg PO BID #90 tab 09/28 Clopidogrel Bisulfate [Plavix] 75 mg PO DAILY #30 tab 09/28/16 Lisinopril [Prinivil] 5 mg PO DAILY #30 tab 09/28/16 Ondansetron HCl [Zofran] 4 mg PO Q6H PRN #15 tab 09/28/16 Pantoprazole Sodium [Protonix] 40 mg PO DAILY #30 tab 09/28/16 Senna Concentrate [Senokot] 2 tab PO HS #120 tablet 09/28/16 Tamsulosin HCl [Flomax] 0.4 mg PO HS #30 cap 09/28/16 Zaleplon [Sonata] 10 mg PO HS PRN #20 capsule 09/28/16 - Family History Reports: Cardiac Disorders (Father of congestive heart failure.) - Social History Travel Outside of [place] in the Last 3 Months?: No Lives: With Family Smoking Status: Never smoker Social History: Denies: Substance Use Disorder - Review of Systems Constitutional: Diaphoresis, Fatigue, Loss of Appetite, Weakness Eyes: No Symptoms Reported Ears: No Symptoms Reported Nose: No Symptoms Reported Mouth: No Symptoms Reported Throat/Neck: No Symptoms Reported Respiratory: No Symptoms Reported Cardiovascular: No Symptoms Reported Gastrointestinal: Constipation, Dysphasia, Heartburn Genitourinary: Nocturia Neurological: Dizziness, Numbness, Speech Difficulty, Weakness, Mood Changes Musculoskeletal:: Arthritis Integumentary: No Symptoms Reported Allergic/Immunologic: No Symptoms Reported Hematologic: No Symptoms Reported Endocrine: No Symptoms Reported Psychiatric: Anxiety - Physical Exam Vital Signs: Initial Vitals Temperature 98.3 F 10/01/16 09:53 Pulse Rate 90 10/01/16 09:53 Respiratory Rate 18 10/01/16 09:53 Blood Pressure 138/67 10/01/16 09:53 Pulse Oxygen Saturation 93 10/01/16 09:53 Constitutional: Alert, Other (Fairly profound slurring of the speech noted) Oriented to: Time, Person, Place - HEENT Head: Normal Eye: Normal Oropharynx: Normal ENT EAC: Normal TMJ: Normal Nose: No Symptoms Reported Respiratory: Diminished, Rhonchi Cardiovascular: Normal, Systolic murmur - GI Auscultation: Normal Palpation: Normal Tenderness: Non tender Rectal Exam: Deferred - Exam Deferred: Yes - Musculoskeletal Back: Normal, No Palpable Step-off Extremities: Cyanosis, Edema Spine: limited range of motion - Integumentary Skin: Normal, Warm, Dry - Neurologic Memory Impaired: Normal Motor Function: Normal, Abnormal Cranial Nerve: negative: 12 Cerebellar: Ataxia Mood Description: Anxious Thought: Coherent Perception: Normal - Focused CV Perfusion Exam Vital Signs: Last Vital Signs Temp 98.3 F 10/01/16 09:53 Pulse 80 10/01/16 11:10 Resp 18 10/01/16 11:10 BP 112/60 10/01/16 11:10 Pulse Ox 94 10/01/16 11:10 - Diagnostic Findings Allergies No Known Allergies Allergy (Verified 09/24/16 15:58) Discharge Home Medication List Cyanocobalamin (Vitamin B-12) [Vitamin B-12] 100 mcg PO HS 09/03/12 [History Confirmed 10/01/16] Finasteride 5 mg PO QAM 09/03/12 [History Confirmed 10/01/16] Furosemide 20 mg PO QAM PRN 01/15/16 [History Confirmed 10/01/16] Insulin Detemir [Levemir] 16 units SQ QAM 01/15/16 [History Confirmed 10/01/16] Pravastatin [Pravachol] 20 mg PO HS 01/15/16 [History Confirmed 10/01/16] Ergocalciferol (Vitamin D2) [Vitamin D] 50,000 units PO Th@0900 09/24/16 [ History Confirmed 10/01/16] Sertraline HCl [Zoloft] 100 mg PO QHS 09/25/16 [History Confirmed 10/01/16] Acetaminophen [Tylenol] 650 mg PO QID #120 tablet 09/28/16 [Rx Confirmed ] Aspirin (Enteric Coated) [Halfprin] 81 mg PO DAILY #90 tab 09/28/16 [Rx Confirmed 10/01/16] Calcium Carbonate + Vitamin D [Oscal with Vitamin D] 500 mg PO BID #90 tab 09/28 [Rx Confirmed 10/01/16] Clopidogrel Bisulfate [Plavix] 75 mg PO DAILY #30 tab 09/28/16 [Rx Confirmed ] Lisinopril [Prinivil] 5 mg PO DAILY #30 tab 09/28/16 [Rx Confirmed 10/01/16] Ondansetron HCl [Zofran] 4 mg PO Q6H PRN #15 tab 09/28/16 [Rx Confirmed 10/01/16 ] Pantoprazole Sodium [Protonix] 40 mg PO DAILY #30 tab 09/28/16 [Rx Confirmed ] Senna Concentrate [Senokot] 2 tab PO HS #120 tablet 09/28/16 [Rx Confirmed 10/01] Tamsulosin HCl [Flomax] 0.4 mg PO HS #30 cap 09/28/16 [Rx Confirmed 10/01/16] Zaleplon [Sonata] 10 mg PO HS PRN #20 capsule 09/28/16 [Rx Confirmed 10/01/16] 10/01/16 09:55 10/01/16 09:55 Abnormal Lab Results 10/01/16 10/01/16 10/01/16 09:55 09:55 10:20 RBC 3.82 L Hgb 11.5 L Hct 34.7 L RDW 14.7 H Neut % (Auto) 76.1 H Lymph % (Auto) 13.3 L BUN 28 H Glucose 146 H Vze-J-Eregpwkywnf Pept 4120 H Urine Protein 1+ H Urine RBC 2-5 H Patient Name: JINNY SCHNEIDER LOC: ED : 1930 AGE: 85 Order Date:10/01/16 Date of Service: Report # [id number] Ord Physician: Charles Tinoco Exam # [id number] Emergency Physician: Daniel Lee MD Exam(s): [id number] CT/CT HEAD W/O CM CLINICAL DATA: Slurred speech, altered mental status EXAM: CT HEAD WITHOUT CONTRAST TECHNIQUE: Contiguous axial images were obtained from the base of the skull through the vertex without contrast. COMPARISON: 09/24/2016 FINDINGS: Stable brain atrophy and chronic white matter microvascular ischemic changes about the ventricles. Stable symmetric ventricles. No acute intracranial hemorrhage, mass lesion, definite infarction, midline shift, herniation, or hydrocephalus. No focal mass effect or edema. Cisterns are patent. Cerebellar atrophy as well. Orbits are symmetric. Mastoids and sinuses remain clear. IMPRESSION: Stable atrophy pattern and chronic white matter ischemic change. No interval change or acute process by noncontrast CT. Electronically Signed By: Jennifer Hodge M.D. On: 10/01/2016 10:49 Electronically Signed By: Dileep Hodge MD Electronically Signed Date/Time: Dictate Date/Time: 10/01/16 1044 Technologist: Tess Oconnell Transcribed By: Marissa Transcribed Date/Time: 10/01/16 1049 Patient Name: JINNY SCHNEIDER LOC: ED : 1930 AGE: 85 Order Date:10/01/16 Date of Service: Report # [id number] Ord Physician: Charles Tinoco Exam # [id number] Emergency Physician: Daniel Lee MD Exam(s): [id number] RAD/DG CHEST PORTABLE CLINICAL DATA: Altered mental status EXAM: PORTABLE CHEST 1 VIEW COMPARISON: 09/24/2016 FINDINGS: Cardiac shadow is mildly enlarged but stable. The lungs are well aerated and demonstrate bibasilar infiltrate. No sizable effusion is seen. No bony abnormality is noted. IMPRESSION: Bibasilar infiltrates. Electronically Signed By: Eduardo Bernal M.D. On: 10/01/2016 10:25 Electronically Signed By: Eduardo Bernal MD Electronically Signed Date/Time: Dictate Date/Time: 10/01/16 1024 Technologist: Janelle Lee - Assessment (1) TIA (transient ischemic attack) G45.9 - TRANSIENT CEREBRAL ISCHEMIC ATTACK, UNSPECIFIED Acute Present on Admission: Yes Qualifiers: Transient cerebral ischemia type: carotid artery syndrome (hemispheric) Qualified Code(s): G45.1 - Carotid artery syndrome (hemispheric) Case discussed in details with neurologist circulation analyst Dr. Man Given failure of aspirin, failure of aspirin and Plavix,h/o atrial fibrillation anticoagulation with Eliquis was recommended. Patient will receive liquids 5 mg p.o. twice a day will monitor for bleeding (2) Diabetes mellitus E11.9 - TYPE 2 DIABETES MELLITUS WITHOUT COMPLICATIONS Chronic Present on Admission: Yes Qualifiers: Diabetes mellitus type: type 2 Diabetes mellitus complication status: with neurologic complications Diabetes mellitus complication detail: with polyneuropathy Diabetic retinopathy severity: D Proliferative retinopathy type: P Diabetes mellitus macular edema: D Diabetes mellitus salvage determiner insulin use: with residential use Laterality: L Chronic kidney disease stage: C Qualified Code(s): E11.42 - Type 2 diabetes mellitus with diabetic polyneuropathy; 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 Continue ADA diet Levemir and sliding scale regular insulin (3) Dysphagia R13.10 - DYSPHAGIA, UNSPECIFIED Acute Qualifiers: Dysphagia type: oropharyngeal phase Qualified Code(s): R13.12 - Dysphagia, oropharyngeal phase Continue aspiration precautions, speech to see (4) Atrial fibrillation with normal ventricular rate I48.91 - UNSPECIFIED ATRIAL FIBRILLATION Chronic Present on Admission: Yes rate controlled.Keep K more than 4 magnesium more than 2 (5) GERD (gastroesophageal reflux disease) K21.9 - GASTRO-ESOPHAGEAL REFLUX DISEASE WITHOUT ESOPHAGITIS Chronic Qualifiers: Esophagitis presence: without esophagitis Qualified Code(s): K21.9 - Gastro -esophageal reflux disease without esophagitis Add PPI (6) Hypertension I10 - ESSENTIAL (PRIMARY) HYPERTENSION Chronic Present on Admission: Yes Qualifiers: Hypertension type: secondary to endocrine disorders Qualified Code(s): I15.2 - Hypertension secondary to endocrine disorders Keep SBP above 140, cut back lisinopril to 5 mgdaily (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 Will likely require short-term rehab. Case Care Discussed with: Patient, Consultants, Family, Nursing Staff, Well Driller Total Time: 60 min . Critical Care: No Code: 53303
[2016-10-01] MEDS ORDERED: ONDANSETRON HCL 4 MG ODT TAB PO PRN (12:06)
[2016-10-01] MEDS ORDERED: INSULIN DETEMIR 100 UNITS/ML PEN SQ SCH (13:00)
[2016-10-01] MEDS ORDERED: Vaccine Screening Complete SCH (14:00)
[2016-10-01] MEDS: REGULAR INSULIN 100 UNITS/ML - 3 ML VIAL SQ SCH ×2 (14:27→16:56)
[2016-10-01] MEDS: ACETAMINOPHEN 325 MG/TAB TABLET PO SCH ×3 (14:28→19:45)
[2016-10-01] MEDS ORDERED: LORAZEPAM 2 MG/ML VIAL IV PRN (16:40)
[2016-10-01] MEDS ORDERED: LORAZEPAM 2 MG/ML VIAL ONE (16:42)
[2016-10-01] MEDS: NS 1,000 ML IV SCH (16:47)
[2016-10-01] MEDS: CALCIUM CARBONATE + VITAMIN D 500 MG TAB PO SCH (17:21)
[2016-10-01] MEDS: CYANOCOBALAMIN (Vitamin B-12) 500 MCG TABLET PO SCH (19:44)
[2016-10-01] MEDS: PRAVASTATIN 20 MG TAB PO SCH (19:44)
[2016-10-01] MEDS: SENNA CONCENTRATE TAB PO SCH (19:45)
[2016-10-01] MEDS: TAMSULOSIN HCL 0.4 MG CAP PO SCH (19:45)
[2016-10-01] MEDS: APIXABAN 5 MG TABLET PO SCH (19:45)
[2016-10-01] MEDS: SERTRALINE HCL 100 MG TAB PO SCH (19:45)
[2016-10-01] MEDS ORDERED: Non-Formulary Medication ITEM (Cyanocobalamin (Vitamin B-12) [Vitamin B-12 (Cyanocobalam PO SCH (21:00)
[2016-10-01] MEDS: TEMAZEPAM 15 MG CAP PO PRN (21:02)
[2016-10-02] MEDS: DEXTROSE 25 GM/50 ML PFS IV PRN (01:34)
[2016-10-02] MEDS: REGULAR INSULIN 100 UNITS/ML - 3 ML VIAL SQ SCH ×5 (01:37→23:25)
[2016-10-02] MEDS: NS 1,000 ML IV SCH ×2 (01:39→15:27)
[2016-10-02] MEDS: ACETAMINOPHEN 325 MG/TAB TABLET PO SCH ×4 (04:44→21:58)
[2016-10-02] MEDS: PANTOPRAZOLE 40 MG TAB PO SCH (04:46)
[2016-10-02 04:52] LABS: AUTOMATED BASOPHIL 0.3 % (0-2); AUTOMATED EOSINOPHIL 0.5 % (0-5); AUTOMATED LYMPH 12.5 % (17-44); AUTOMATED MONOCYTE 12.9 % (3-10); AUTOMATED NEUTROPHIL 73.8 % (45-76); MPV 10.1 fL (7.4-10.4)
[2016-10-02 05:08] LABS: BLOOD UREA NITROGEN 25 MG/DL (9-20); CALCIUM 8.8 MG/DL (8.4-10.2); CALCULATED OSMOLALITY 270 MOs/Kg (270-290); CHLORIDE 107 mEq/L (98-107); GLUCOSE 69 MG/DL (70-99); SODIUM LEVEL 139 mEq/L (137-146)
[2016-10-02] MEDS ORDERED: LISINOPRIL 5 MG TAB PO SCH (09:00)
[2016-10-02] MEDS ORDERED: LISINOPRIL 2.5 MG TAB PO SCH (09:00)
[2016-10-02] MEDS ORDERED: INSULIN DETEMIR 16 UNIT SQ SCH (09:00)
[2016-10-02] MEDS: APIXABAN 5 MG TABLET PO SCH ×2 (09:38→21:58)
[2016-10-02] MEDS: FINASTERIDE 5 MG TAB PO SCH (09:39)
--- NOTE | 2016-10-02 12:32 | GENMEDPROG ---
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 Intermittent myoclonic jerking. Notes Reviewed: Yes Events from last night noted and discussed with Clinical Staff Current Medication List: Reviewed Currently: Reports: Other (unresponsive) - Physical Examination Vital Signs and I&O: Last Vital Signs Temp 97.5 F 10/02/16 12:27 Pulse 70 10/02/16 12:27 Resp 22 10/02/16 12:27 BP 133/74 10/02/16 12:27 Pulse Ox 94 10/02/16 12:27 Oxygen Pulse Oxygen Saturation 94 O2 Device Room Air Oxygen Flow Rate 2 Fraction of Inspired Oxygen ( FIO2) Intake & Output 09/29/16 09/30/16 10/01/16 10/02/16 23:59 23:59 23:59 23:59 Intake Total 45 1370 Output Total 75 200 Balance -30 1170 Patient's weight 82.645 kg 82.962 kg General: Moderate distress. negative: Alert, Oriented x3 HEENT: Anicteric Sclera, Mucous membr. moist/pink. negative: PERRLA (pupils constricted) Neck: Normal Trachea alignment, Normal inspection, No Masses palpable Respiratory: Normal - CTA Cardiovascular: Regular rate and rhythm, Normal S1, Normal S2 GI: Normal bowel sounds, Soft, Non tender Extremities/Musculoskeletal: Normal pulses, DJD, Muscle Tone (normal). negative : Edema Skin: Warm,Dry and Intact, No breakdown Neurological: Normal tone, Cranial nerves 3-12 NL, Drowsy, Somnolent, Lethargy, Other (Patient with new change in mental status, unarousable, follows commands to country printer apprentice and squeeze w/ hands, but eyes closed, mouth stays open. Intermittent myoclonic jerking.). negative: Normal speech Psych/Mental Status: Disoriented, Drowsy, Somnolent, Lethargic Lab/DI/Studies Reviewed: Laboratory Tests 10/02/16 10/02/16 10/02/16 04:15 04:15 04:42 WBC 5.8 Hgb 9.8 L D Hct 29.4 L Plt Count 168 Neut % (Auto) 73.8 Lymph % (Auto) 12.5 L Early % (Auto) 12.9 H Eos % (Auto) 0.5 Baso % (Auto) 0.3 Sodium 139 Potassium 3.9 Chloride 107 Carbon Dioxide 24 Anion Gap 12 BUN 25 H Creatinine 0.90 Estimated GFR (MDRD) > 60 Glucose 69 L POC Capillary Glucose 72 Calculated Osmolality 270 Calcium 8.8 Magnesium 1.80 CXR: IMPRESSION: Again noted bilateral basilar hazy atelectasis or infiltrates. No convincing pulmonary edema. Electronically Signed By: Bari Ortiz M.D. On: 10/02/2016 16:25 MRI Head: IMPRESSION: 1. Small acute infarct in the anterior left MCA territory mostly affecting the operculum. No associated mass effect. 2. The examination had to be discontinued prior to completion due to patient agitation despite premedication. Electronically Signed By: Bill Leary M.D. On: 10/02/2016 15:42 Carotid Doppler: IMPRESSION: Plaque at the level of both carotid bulbs, proximal internal carotid arteries and the distal left common carotid artery. Overall plaque volume is mild and estimated bilateral ICA stenoses are less than 50%. Electronically Signed By: Fab Montes M.D. On: 09/26/2016 08:10 - Assessment (1) CVA (cerebral vascular accident) Ruled-out I63.9 - CEREBRAL INFARCTION, UNSPECIFIED Qualifiers: Precerebral and cerebral artery: middle cerebral artery Laterality of affected vessel: left Comment/Plan: Patient is currently on Eliquis. Have consulted neurology. Continues to have symptoms of falling backwards, is somnolent and difficult to arouse. Will give trial of IV valproic acid, hold PO meds until cleared by speech therapy again. (2) Atrial fibrillation with normal ventricular rate Chronic I48.91 - UNSPECIFIED ATRIAL FIBRILLATION Comment/Plan: rate controlled.Keep K more than 4 magnesium more than 2 (3) Pneumonia Acute J18.9 - PNEUMONIA, UNSPECIFIED ORGANISM Qualifiers: Pneumonia type: due to unspecified organism Laterality: bilateral Lung location: lower lobe of lung Qualified Code(s): J18.9 - Pneumonia, unspecified organism Comment/Plan: Started on IV Rocephin and Azithromycin. No fever or elevation in WBC, but patient has chest congestion and abnormal CXR. (4) Diabetes mellitus Chronic E11.9 - TYPE 2 DIABETES MELLITUS WITHOUT COMPLICATIONS Qualifiers: Diabetes mellitus type: type 2 Diabetes mellitus complication status: with neurologic complications Diabetes mellitus complication detail: with polyneuropathy Diabetes mellitus base brander insulin use: with base brander use Qualified Code(s): E11.42 - Type 2 diabetes mellitus with diabetic polyneuropathy; Z79.4 - long-term (current) use of insulin Comment/Plan: Continue ADA diet, Levemir, and sliding scale regular insulin (5) Vertigo Acute R42 - DIZZINESS AND GIDDINESS Comment/Plan: The patient has developed this last week as his speech improved. It is difficult to believe that those two symptoms were not related however his MRI was normal at that time. He did not improve with benzodiazepines. Ultrasound of his carotid/vertebrals did not show any significant stenosis. Will try IV valproic acid, convert to PO if sx improve with treatment and patient is able to swallow. (6) GERD (gastroesophageal reflux disease) Chronic K21.9 - GASTRO-ESOPHAGEAL REFLUX DISEASE WITHOUT ESOPHAGITIS Qualifiers: Esophagitis presence: without esophagitis Qualified Code(s): K21.9 - Gastro -esophageal reflux disease without esophagitis Comment/Plan: Continue PPI (7) Hypertension Chronic I10 - ESSENTIAL (PRIMARY) HYPERTENSION Qualifiers: Hypertension type: secondary to endocrine disorders Qualified Code(s): I15.2 - Hypertension secondary to endocrine disorders Comment/Plan: Keep SBP above 140, Hold antihypertensive meds for the next 24-48 hours in light of acute CVA.
[2016-10-02] MEDS: INSULIN DETEMIR 100 UNITS/ML PEN SQ SCH (12:55)
[2016-10-02] MEDS: CALCIUM CARBONATE + VITAMIN D 500 MG TAB PO SCH ×2 (13:03→17:19)
[2016-10-02] MEDS ORDERED: LORAZEPAM 2 MG/ML VIAL IV ONE (13:28)
[2016-10-02] MEDS ORDERED: HALOPERIDOL 5 MG/ML VIAL IM ONE (13:53)
--- NOTE | 2016-10-02 15:45 | DIRPT ---
CLINICAL DATA: 85-year-old male with altered mental status. Initial encounter. Patient Was pre-medicated with Ativan and Haldol, but still unable to tolerate the entire noncontrast MRI brain exam. EXAM: MRI HEAD WITHOUT CONTRAST TECHNIQUE: Multiplanar, multiecho pulse sequences of the brain and surrounding structures were obtained without intravenous contrast. COMPARISON: Head CT without contrast 10/01/2016. Brain MRI 09/25/2016. FINDINGS: The examination had to be discontinued prior to completion due to patient agitation. Major intracranial vascular flow voids are stable. Today there is a small area of cortically based restricted diffusion in the anterior left MCA territory, at the level of the anterior operculum. Mild subcortical white matter involvement also. See series 4, image 139 and series 6, image 91). Mild if any associated T2 and FLAIR hyperintensity. No associated mass effect. T2* imaging could not be obtained. No other restricted diffusion. No intracranial mass effect. No ventriculomegaly. Basilar cisterns remain patent. Elsewhere stable T2 and FLAIR paul and white matter signal. Stable and negative visualized cervicomedullary junction and cervical spine. Normal bone marrow signal. Visible internal auditory structures appear normal. Stable mastoids and paranasal sinuses, clear aside from trace ethmoid mucosal thickening. Orbit and scalp soft tissues appear stable. IMPRESSION: 1. Small acute infarct in the anterior left MCA territory mostly affecting the operculum. No associated mass effect. 2. The examination had to be discontinued prior to completion due to patient agitation despite premedication. Electronically Signed By: Bill Leary M.D. On: 10/02/2016 15:42
[2016-10-02 16:07] LABS: AUTOMATED BASOPHIL 0.4 % (0-2); AUTOMATED EOSINOPHIL 0.6 % (0-5); AUTOMATED LYMPH 14.5 % (17-44); AUTOMATED NEUTROPHIL 71.5 % (45-76); MPV 9.6 fL (7.4-10.4)
[2016-10-02] MEDS: AZITHROMYCIN 500 MG in D5W 250 ML IV SCH (16:14)
--- NOTE | 2016-10-02 16:28 | DIRPT ---
CLINICAL DATA: Noisy respiration, confusion, dysphagia EXAM: PORTABLE CHEST 1 VIEW COMPARISON: 10/01/2016 FINDINGS: Cardiomediastinal silhouette is stable. Bilateral hazy atelectasis or infiltrates again noted without change in aeration. No convincing pulmonary edema. Atherosclerotic calcifications of thoracic aorta. IMPRESSION: Again noted bilateral basilar hazy atelectasis or infiltrates. No convincing pulmonary edema. Electronically Signed By: Bari Ortiz M.D. On: 10/02/2016 16:25
[2016-10-02] MEDS: CEFTRIAXONE 1 GM in D5W 100 ML IV SCH (17:25)
[2016-10-02] MEDS: VALPROATE SODIUM IV SCH (18:52)
[2016-10-02] MEDS: NS IV SCH (18:52)
[2016-10-02] MEDS: TAMSULOSIN HCL 0.4 MG CAP PO SCH (20:18)
--- NOTE | 2016-10-02 21:09 | DIRPT ---
CLINICAL DATA: Nasogastric tube placement. EXAM: PORTABLE CHEST 1 VIEW COMPARISON: 10/02/2016 and 10/01/2016. FINDINGS: 2032 hours. A new enteric tube is seen projecting below the diaphragm into the proximal stomach. There is cardiomegaly with increased vascular congestion and bibasilar airspace opacities, most consistent with pulmonary edema. There may be a small amount of pleural fluid bilaterally. No evidence of pneumothorax. The bones appear unchanged. IMPRESSION: 1. Nasogastric tube projects over the proximal stomach. 2. Worsening pulmonary edema. Electronically Signed By: Jose Roberto Stark M.D. On: 10/02/2016 21:06
[2016-10-02] MEDS: PRAVASTATIN 20 MG TAB PO SCH (21:58)
[2016-10-02] MEDS: SENNA CONCENTRATE TAB PO SCH (21:58)
[2016-10-02] MEDS: SERTRALINE HCL 100 MG TAB PO SCH (21:59)
[2016-10-02] MEDS: CYANOCOBALAMIN (Vitamin B-12) 500 MCG TABLET PO SCH (21:59)
--- NOTE | 2016-10-02 22:06 | PCM.NEUCO ---
Consultation Date: 10/02/16 Requesting Physician: Melissa Fields Consulting Doctor: Rita Ritchie Reason For Consult: Stroke/TIA 85 y.o. male with h/o Afib, HTN, DM admitted with slurred speech and altered mental status. Patient was recently hospitalized (09/24-09/28) for possible stroke. Patient also had slurred speech at that time. He had previously taken Coumadin but it was discontinued due to fall risk. During his recent hospitalization he was started on Plavix and ASA. He had a complete stroke work up. The MRI of his brain was negative for any acute findings. CD with no significant stenosis. His echo did not show any evidence of a clot. He was back to baseline at the time of discharge. He was discharged to a SNF. Yesterday patient had sudden onset of slurred speech and AMS. Patient was brought to ED for evaluation. The CT of his head was negative for any acute intracranial findings. Per neurologist applications intern recommendations, he was switched from Plavix to Eliquis given h/o Afib. Today patient was unable to complete MRI due to agitation but it did show a small acute infarct in the anterior left MCA territory mostly affecting the operculum. Patient has been somnolent due to medication. He has been observed to have intermittent jerking of lower extremities and holding out his arms like he was falling. A trial of Depacon was started today. - Past Medical and Surgical History Cardiac History: Reports: Coronary Artery Disease, Atrial Fibrillation, Hypertension, Congestive Heart Failure, Hypercholesterolemia, Valvular Heart Disease. Denies: Syncope Respiratory History: Reports: Cough GI/ History: Reports: Renal Disease (CKD STAGE IV per old records), Gastroesophageal Reflux, BPH Systemic History: Reports: Diabetes. Denies: Cancer Musculoskeletal History: Reports: Arthritis, Osteoarthritis Psychological History: Reports: Anxiety. Denies: Depression, Alcoholism, Substance Use Disorder Neurological History: Reports: Cerebrovascular Accident, Other. Denies: Guillian-Cushing Syndrome, Parkinson's, Metabolic encephalopathy Past Surgical History: Reports: Hernia Surgery (Right inguinal hernia repair in 2009) Allergies No Known Allergies Allergy (Verified 09/24/16 15:58) Home Medications Cyanocobalamin (Vitamin B-12) [Vitamin B-12] 100 mcg PO HS 09/03/12 Finasteride 5 mg PO QAM 09/03/12 Furosemide 20 mg PO QAM PRN 01/15/16 Insulin Detemir [Levemir] 16 units SQ QAM 01/15/16 Pravastatin [Pravachol] 20 mg PO HS 01/15/16 Ergocalciferol (Vitamin D2) [Vitamin D] 50,000 units PO Th@0900 09/24/16 Sertraline HCl [Zoloft] 100 mg PO QHS 09/25/16 Acetaminophen [Tylenol] 650 mg PO QID #120 tablet 09/28/16 Aspirin (Enteric Coated) [Halfprin] 81 mg PO DAILY #90 tab 09/28/16 Calcium Carbonate + Vitamin D [Oscal with Vitamin D] 500 mg PO BID #90 tab 09/28 Clopidogrel Bisulfate [Plavix] 75 mg PO DAILY #30 tab 09/28/16 Lisinopril [Prinivil] 5 mg PO DAILY #30 tab 09/28/16 Ondansetron HCl [Zofran] 4 mg PO Q6H PRN #15 tab 09/28/16 Pantoprazole Sodium [Protonix] 40 mg PO DAILY #30 tab 09/28/16 Senna Concentrate [Senokot] 2 tab PO HS #120 tablet 09/28/16 Tamsulosin HCl [Flomax] 0.4 mg PO HS #30 cap 09/28/16 Zaleplon [Sonata] 10 mg PO HS PRN #20 capsule 09/28/16 - Social History Travel Outside of [place] in the Last 3 Months?: No Lives: in Senior Care/SNF Smoking Status: Never smoker Social History: Denies: Alcohol Use, Substance Use Disorder - Family History Reports: Cardiac Disorders (Father of congestive heart failure.) - Review of Systems Yes Review of systems cannot be obtained due to the patient's medical condition (Pt somnolent) - Physical Exam Vital Signs: Initial Vitals Temperature 98.3 F 10/01/16 09:53 Pulse Rate 90 10/01/16 09:53 Respiratory Rate 18 10/01/16 09:53 Blood Pressure 138/67 10/01/16 09:53 Pulse Oxygen Saturation 93 10/01/16 09:53 Constitutional: No apparent distress, Somnolent Oriented to: Time (able to say 2017), Person, Place - HEENT Head: Normal - Integumentary Skin: Other (Bruising on BUE) - Mental Status Orientation: Time, Person, Place Speech: Dysarthria (unable to understand when patient attempts to say more than one word) Coginitive: Follows Commands (Able to follow some commands, althought patient has difficulty completing task) Affect: Appropriate Thought: Other (Unable to assess due to somnolence) Perception: Other (Unable to asssess) - Sensory Sensory: Other (Decreased sensation in feet (pain and touch)) - Reflex Babinski Reflex Response: Absent Bilateral Reflexes: Absent 0: Right Bicep, Left Bicep, Left Tricep, Right Tricep, Left Brachioradialis, Right Brachioradialis, Left Patellar, Right Patellar, Left Achilles, Right Achilles - Coordination Alternate Nose to Finger Test: Patient able to lift arms in attempt to touch nose but unable to reach nose due to poor effort - Other Exam Other Exam Findings: CN II-XII: (limited exam due to somnolence) Pupil size equal and reactive. Fundi not visualized. Pt does not open eyes on command. Hearing intact to voice. Right lower facial droop. Opens mouth to stick tongue out but poor effort to stick tongue out. - Lab Results Laboratory Tests 10/01/16 10/01/16 10/02/16 09:55 09:55 04:15 WBC Hgb Hct PT 10.7 INR 1.0 APTT 26.1 Sodium 139 Potassium 3.9 BUN 25 H Creatinine 0.90 Glucose 69 L C-Reactive Prot, Quant Fui-T-Meuardkyvre Pept 4120 H 10/02/16 10/02/16 15:50 19:30 WBC 5.2 Hgb 10.6 L Hct 32.0 L PT INR APTT Sodium Potassium BUN Creatinine Glucose C-Reactive Prot, Quant 44.2 H Zpk-M-Vnywqewlceb Pept - Diagnostic Findings EXAM: CT HEAD WITHOUT CONTRAST TECHNIQUE: Contiguous axial images were obtained from the base of the skull through the vertex without contrast. COMPARISON: 09/24/2016 FINDINGS: Stable brain atrophy and chronic white matter microvascular ischemic changes about the ventricles. Stable symmetric ventricles. No acute intracranial hemorrhage, mass lesion, definite infarction, midline shift, herniation, or hydrocephalus. No focal mass effect or edema. Cisterns are patent. Cerebellar atrophy as well. Orbits are symmetric. Mastoids and sinuses remain clear. IMPRESSION: Stable atrophy pattern and chronic white matter ischemic change. No interval change or acute process by noncontrast CT. EXAM: MRI HEAD WITHOUT CONTRAST COMPARISON: Head CT without contrast 10/01/2016. Brain MRI 09/25/2016. FINDINGS: The examination had to be discontinued prior to completion due to patient agitation. Major intracranial vascular flow voids are stable. Today there is a small area of cortically based restricted diffusion in the anterior left MCA territory, at the level of the anterior operculum. Mild subcortical white matter involvement also. See series 4, image 139 and series 6, image 91). Mild if any associated T2 and FLAIR hyperintensity. No associated mass effect. T2* imaging could not be obtained. No other restricted diffusion. No intracranial mass effect. No ventriculomegaly. Basilar cisterns remain patent. Elsewhere stable T2 and FLAIR paul and white matter signal. Stable and negative visualized cervicomedullary junction and cervical spine. Normal bone marrow signal. Visible internal auditory structures appear normal. Stable mastoids and paranasal sinuses, clear aside from trace ethmoid mucosal thickening. Orbit and scalp soft tissues appear stable. IMPRESSION: 1. Small acute infarct in the anterior left MCA territory mostly affecting the operculum. No associated mass effect. 2. The examination had to be discontinued prior to completion due to patient agitation despite premedication. - Assessment/Plan (1) CVA (cerebral vascular accident) I63.9 - CEREBRAL INFARCTION, UNSPECIFIED Acute Present on Admission: Yes middle cerebral artery left Comment: Patient admitted with slurred speech and AMS. The MRI of his brain showed a small acute infarct in the anterior left MCA territory mostly affecting the operculum. On admission he was switched from Plavix and ASA to Eliquis per recommendation of neurology. Patient already on statin. Patient has intermittent jerking of extremities. Will order EEG to evaluate for seizure. Cont OT/PT/ST. Case Care Discussed with: Nursing Staff, Other (Caregiver; Dr. Mendoza, neurologist)
[2016-10-02] MEDS ORDERED: FUROSEMIDE 20 MG/2 ML VIAL IV ONE (23:22)
[2016-10-03] MEDS: VALPROATE SODIUM IV SCH ×2 (05:16→17:43)
[2016-10-03] MEDS: NS IV SCH ×2 (05:16→17:43)
[2016-10-03] MEDS: PANTOPRAZOLE 40 MG TAB PO SCH (05:16)
[2016-10-03 05:58] LABS: AUTOMATED BASOPHIL 0.2 % (0-2); AUTOMATED LYMPH 10.7 % (17-44); AUTOMATED MONOCYTE 13.3 % (3-10); AUTOMATED NEUTROPHIL 74.8 % (45-76); MPV 10.2 fL (7.4-10.4)
[2016-10-03] MEDS: REGULAR INSULIN 100 UNITS/ML - 3 ML VIAL SQ SCH ×4 (06:11→23:36)
[2016-10-03 06:19] LABS: BLOOD UREA NITROGEN 25 MG/DL (9-20); CALC CORRECTED 9.7 MG/DL (8.4-10.2); CALCULATED OSMOLALITY 271 MOs/Kg (270-290); CHLORIDE 105 mEq/L (98-107); GLUCOSE 123 MG/DL (70-99); LDL (calc.) 67.4 MG/DL (<100); SODIUM LEVEL 138 mEq/L (137-146); TOTAL PROTEIN 6.3 G/DL (6.3-8.2); VLDL (calc.) 11.6 MG/DL (5-40)
[2016-10-03 06:48] LABS: hTSH 3.44 uIU/mL (0.5-4.67)
[2016-10-03] MEDS: INSULIN DETEMIR 100 UNITS/ML PEN SQ SCH (09:52)
[2016-10-03] MEDS: ACETAMINOPHEN 325 MG/TAB TABLET PO SCH ×4 (09:54→22:21)
[2016-10-03] MEDS: APIXABAN 5 MG TABLET PO SCH ×2 (09:54→22:22)
[2016-10-03] MEDS: FINASTERIDE 5 MG TAB PO SCH (09:55)
[2016-10-03] MEDS: CALCIUM CARBONATE + VITAMIN D 500 MG TAB PO SCH ×2 (11:50→16:42)
[2016-10-03] MEDS: AZITHROMYCIN 500 MG in D5W 250 ML IV SCH (15:24)
--- NOTE | 2016-10-03 15:41 | GENMEDPROG ---
Chief Complaint: CVA, ATRIAL FIB, PNEUMONIA, DM-2 Subjective Note: More alert today, able to follow commands and recognize family members. States he still feels like he is falling, but not as severely as before. Notes Reviewed: Yes: Events from last night noted and discussed with Clinical Staff Current Medication List: Reviewed Currently: Reports: Other (unresponsive) DVT Prophylaxis: Yes - Physical Examination Vital Signs and I&O: Last Vital Signs Temp 98.7 F 10/03/16 11:42 Pulse 69 10/03/16 12:21 Resp 20 10/03/16 11:42 BP 118/56 L 10/03/16 11:42 Pulse Ox 94 10/03/16 11:42 Oxygen Pulse Oxygen Saturation 94 O2 Device Room Air Oxygen Flow Rate 2 Fraction of Inspired Oxygen ( FIO2) Intake & Output 09/30/16 10/01/16 10/02/16 10/03/16 23:59 23:59 23:59 23:59 Intake Total 45 2558 390 Output Total 75 200 Balance -30 2358 390 Patient's weight 82.645 kg 82.962 kg 82.418 kg General: Alert, Cooperative, Mild distress, Weakness. negative: Oriented x3 HEENT: Anicteric Sclera, Mucous membr. moist/pink. negative: PERRLA (pupils constricted) Neck: Normal Trachea alignment, Normal inspection, No Masses palpable Lymphatics: Normal Respiratory: Normal - CTA Cardiovascular: Regular rate and rhythm, Normal S1, Normal S2 GI: Normal bowel sounds, Soft, Non tender Extremities/Musculoskeletal: Normal pulses, DJD, Muscle Tone (normal). 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 Intermittent myoclonic jerking.) Psych/Mental Status: Cooperative, Drowsy, Somnolent, Lethargic Lab/DI/Studies Reviewed: Laboratory Tests 10/02/16 10/03/16 10/03/16 19:30 05:00 05:00 WBC 5.8 Hgb 10.6 L Hct 31.3 L Plt Count 174 Neut % (Auto) 74.8 Lymph % (Auto) 10.7 L [place] % (Auto) 13.3 H Eos % (Auto) 1.0 Sodium 138 Potassium 3.6 Chloride 105 Carbon Dioxide 24 Anion Gap 13 BUN 25 H Creatinine 1.00 Estimated GFR (MDRD) > 60 Glucose 123 H POC Capillary Glucose Calculated Osmolality 271 Calcium 9.0 Corrected Calcium 9.7 Total Bilirubin 1.2 AST 36 ALT 41 Alkaline Phosphatase 90 C-Reactive Prot, Quant 44.2 H Iuz-J-Egumfjiborq Pept 5710 H Albumin 3.3 L Triglycerides 58 Cholesterol 123 LDL Cholesterol, Calc 67.4 HDL Cholesterol 44.0 Cholesterol/HDL Ratio 2.8 TSH 3.44 10/03/16 05:36 WBC Hgb Hct Plt Count Neut % (Auto) Lymph % (Auto) [place] % (Auto) Eos % (Auto) Sodium Potassium Chloride Carbon Dioxide Anion Gap BUN Creatinine Estimated GFR (MDRD) Glucose POC Capillary Glucose 117 H Calculated Osmolality Calcium Corrected Calcium Total Bilirubin AST ALT Alkaline Phosphatase C-Reactive Prot, Quant Hha-U-Ubgzhdubqyo Pept Albumin Triglycerides Cholesterol LDL Cholesterol, Calc HDL Cholesterol Cholesterol/HDL Ratio TSH - Assessment (1) CVA (cerebral vascular accident) Acute I63.9 - CEREBRAL INFARCTION, UNSPECIFIED Qualifiers: Precerebral and cerebral artery: middle cerebral artery Laterality of affected vessel: left Comment/Plan: Patient is currently on Eliquis. Have consulted neurology. Continues to have symptoms of falling backwards, but less somnolent toay. tolerating IV valproic acid, hold PO meds until cleared by speech therapy again. Using NG tube for meds. (2) Atrial fibrillation with normal ventricular rate Chronic I48.91 - UNSPECIFIED ATRIAL FIBRILLATION Comment/Plan: rate controlled.Keep K more than 4 magnesium more than 2 (3) Pneumonia Acute J18.9 - PNEUMONIA, UNSPECIFIED ORGANISM Qualifiers: Pneumonia type: due to unspecified organism Laterality: bilateral Lung location: lower lobe of lung Qualified Code(s): J18.9 - Pneumonia, unspecified organism Comment/Plan: Started on IV Rocephin and Azithromycin. No fever or elevation in WBC, but patient has chest congestion and abnormal CXR. (4) Diabetes mellitus Chronic E11.9 - TYPE 2 DIABETES MELLITUS WITHOUT COMPLICATIONS Qualifiers: Diabetes mellitus type: type 2 Diabetes mellitus complication status: with neurologic complications Diabetes mellitus complication detail: with polyneuropathy Diabetes mellitus continuous churn buttermaker insulin use: with continuous churn buttermaker use Qualified Code(s): E11.42 - Type 2 diabetes mellitus with diabetic polyneuropathy; Z79.4 - penitentiary (current) use of insulin Comment/Plan: Continue ADA diet, Levemir, and sliding scale regular insulin. Sugars range 115-145. (5) Vertigo Acute R42 - DIZZINESS AND GIDDINESS Comment/Plan: The patient developed this last week as his speech improved. CT of head also showed older CVA in occipital area of brain. Ultrasound of his carotid/vertebrals did not show any significant stenosis. Tolerating IV valproic acid, convert to PO if sx continue to improve with treatment and patient is able to swallow. (6) GERD (gastroesophageal reflux disease) Chronic K21.9 - GASTRO-ESOPHAGEAL REFLUX DISEASE WITHOUT ESOPHAGITIS Qualifiers: Esophagitis presence: without esophagitis Qualified Code(s): K21.9 - Gastro -esophageal reflux disease without esophagitis Comment/Plan: Continue PPI (7) Hypertension Chronic I10 - ESSENTIAL (PRIMARY) HYPERTENSION Qualifiers: Hypertension type: secondary to endocrine disorders Qualified Code(s): I15.2 - Hypertension secondary to endocrine disorders Comment/Plan: Keep SBP above 140, Hold antihypertensive meds for the next 24-48 hours in light of acute CVA. CT=156/61 today. Additional Notes: Neurology ordered EEG for this morning. Awaiting results. Case Care Discussed with: Patient, Family, Nursing Staff, Resource Management Education/Counseling Given To: Patient, Family Member Education/Counseling Given Regarding: Diagnosis, Treatment, Prognosis, Other Total Time: 25 min Critical Care: No Couseling Time (>50% in counseling/coordination): Yes Code: 11743 (12+)
[2016-10-03] MEDS: CEFTRIAXONE 1 GM in D5W 100 ML IV SCH (16:50)
[2016-10-03] MEDS: SERTRALINE HCL 100 MG TAB PO SCH (22:21)
[2016-10-03] MEDS: CYANOCOBALAMIN (Vitamin B-12) 500 MCG TABLET PO SCH (22:22)
[2016-10-03] MEDS: PRAVASTATIN 20 MG TAB PO SCH (22:22)
[2016-10-03] MEDS: TAMSULOSIN HCL 0.4 MG CAP PO SCH (22:23)
[2016-10-03] MEDS: SENNA CONCENTRATE TAB PO SCH (22:23)
[2016-10-04] MEDS ORDERED: ONDANSETRON HCL 4 MG ODT TAB NG PRN (04:17)
[2016-10-04] MEDS: LANSOPRAZOLE 30 MG TAB NG SCH (05:49)
[2016-10-04] MEDS: VALPROATE SODIUM IV SCH ×2 (05:49→18:54)
[2016-10-04] MEDS: NS IV SCH ×2 (05:49→18:54)
[2016-10-04] MEDS: REGULAR INSULIN 100 UNITS/ML - 3 ML VIAL SQ SCH ×4 (06:41→23:53)
[2016-10-04] MEDS: INSULIN DETEMIR 100 UNITS/ML PEN SQ SCH (09:07)
[2016-10-04] MEDS: ACETAMINOPHEN 325 MG/TAB TABLET PO SCH ×4 (09:08→20:26)
[2016-10-04] MEDS: APIXABAN 5 MG TABLET NG SCH ×2 (09:09→20:26)
[2016-10-04] MEDS: FINASTERIDE 5 MG TAB PO SCH (09:09)
--- NOTE | 2016-10-04 11:22 | CAPUEEG ---
DESCRIPTION: This is a routine 18-channel EEG recording with 1 channel devoted to limited EKG recording. This was performed during wakefulness and drowsiness. Photic stimulation was performed as activating procedure. Hyperventilation was deferred. There is a moderate amount of muscle artifact. Upon maximal arousal, dominant posterior waking rhythm consists frequency of 7 hertz with moderately low amplitude. This activity appeared symmetric over the bilateral posterior derivations and attenuated with eye opening. Photic stimulation did not significantly alter the tracing. As tracing continues, the patient becomes drowsy, but does not enter into sleep. No other asymmetries or epileptiform discharges were noted throughout the tracing. INTERPRETATION: This is an abnormal, routine, adult, awake, and drowsy EEG secondary to mild diffuse slowing. CLINICAL CORRELATION: Mild diffuse slowing indicates disturbance in electrophysiologic properties of paul and white matter in a diffuse or multifocal pattern. Etiologies can include, but not limited to, metabolic/toxic encephalopathy, hypoxic/ischemic encephalopathy, dementia, infection or postictal state. Further clinical correlation is advised. [id number]
--- NOTE | 2016-10-04 13:57 | GENMEDPROG ---
Subjective Note: more alert, swallowing better today, will remove NG tube and start diet per speech recommendations Currently: Reports: Other (unresponsive) DVT Prophylaxis: Yes - Physical Examination Vital Signs and I&O: Last Vital Signs Temp 97.9 F 10/04/16 10:57 Pulse 73 10/04/16 10:57 Resp 16 10/04/16 10:57 BP 121/63 10/04/16 10:57 Pulse Ox 95 10/04/16 10:57 Oxygen Pulse Oxygen Saturation 95 O2 Device Room Air Oxygen Flow Rate 2 Fraction of Inspired Oxygen ( FIO2) Intake & Output 10/01/16 10/02/16 10/03/16 10/04/16 23:59 23:59 23:59 23:59 Intake Total 45 2558 450 350 Output Total 75 200 100 200 Balance -30 2358 350 150 Patient's weight 82.645 kg 82.962 kg 82.418 kg 82.372 kg General: Alert, Cooperative, Mild distress, Weakness. negative: Oriented x3 HEENT: PERRLA (pupils constricted), Anicteric Sclera, Mucous membr. moist/pink Neck: Normal Trachea alignment, Normal inspection, No Masses palpable Lymphatics: Normal Respiratory: Normal - CTA Cardiovascular: Regular rate and rhythm, Normal S1, Normal S2 GI: Normal bowel sounds, Soft, Non tender Extremities/Musculoskeletal: Normal pulses, DJD, Muscle Tone (normal). negative : Edema Skin: Warm,Dry and Intact, No breakdown Neurological: Normal speech (slow & deliberate), Normal tone, Cranial nerves 3- 12 NL, Drowsy, Somnolent, Lethargy, Other (Patient with new change in mental status, unarousable, follows commands to solar system designer and squeeze w/ hands, but eyes closed, mouth stays open. Intermittent myoclonic jerking.) Psych/Mental Status: Cooperative, Drowsy, Somnolent, Lethargic Lab/DI/Studies Reviewed: EEG: INTERPRETATION: This is an abnormal, routine, adult, awake, and drowsy EEG secondary to mild diffuse slowing. CLINICAL CORRELATION: Mild diffuse slowing indicates disturbance in electrophysiologic properties of paul and white matter in a diffuse or multifocal pattern. Etiologies can include, but not limited to, metabolic/toxic encephalopathy, hypoxic/ischemic encephalopathy, dementia, infection or postictal state. Further clinical correlation is advised. [id number] - Assessment (1) CVA (cerebral vascular accident) Acute I63.9 - CEREBRAL INFARCTION, UNSPECIFIED Qualifiers: Precerebral and cerebral artery: middle cerebral artery Laterality of affected vessel: left Comment/Plan: Patient is currently on Eliquis. Have consulted neurology. Continues to have symptoms of falling backwards, but less somnolent toay. Tolerating IV valproic acid, able to take PO feeds and meds now. More alert. Did better with PT also. (2) Atrial fibrillation with normal ventricular rate Chronic I48.91 - UNSPECIFIED ATRIAL FIBRILLATION Comment/Plan: Rate controlled.Keep K more than 4 magnesium more than 2 (3) Pneumonia Acute J18.9 - PNEUMONIA, UNSPECIFIED ORGANISM Qualifiers: Pneumonia type: due to unspecified organism Laterality: bilateral Lung location: lower lobe of lung Qualified Code(s): J18.9 - Pneumonia, unspecified organism Comment/Plan: Continue on IV Rocephin and Azithromycin. No fever or elevation in WBC, but patient has chest congestion and abnormal CXR. (4) Diabetes mellitus Chronic E11.9 - TYPE 2 DIABETES MELLITUS WITHOUT COMPLICATIONS Qualifiers: Diabetes mellitus type: type 2 Diabetes mellitus complication status: with neurologic complications Diabetes mellitus complication detail: with polyneuropathy Diabetes mellitus detention insulin use: with detention use Qualified Code(s): E11.42 - Type 2 diabetes mellitus with diabetic polyneuropathy; Z79.4 - intermediate frame tender (current) use of insulin Comment/Plan: Continue ADA diet, Levemir, and sliding scale regular insulin. Sugars range 80-278. (5) Vertigo Acute R42 - DIZZINESS AND GIDDINESS Comment/Plan: The patient developed this last week as his speech improved. CT of head also showed older CVA in occipital area of brain. Ultrasound of his carotid/vertebrals did not show any significant stenosis. Tolerating IV valproic acid, convert to PO if sx continue to improve with treatment and patient is able to swallow. (6) GERD (gastroesophageal reflux disease) Chronic K21.9 - GASTRO-ESOPHAGEAL REFLUX DISEASE WITHOUT ESOPHAGITIS Qualifiers: Esophagitis presence: without esophagitis Qualified Code(s): K21.9 - Gastro -esophageal reflux disease without esophagitis Comment/Plan: Continue PPI (7) Hypertension Chronic I10 - ESSENTIAL (PRIMARY) HYPERTENSION Qualifiers: Hypertension type: secondary to endocrine disorders Qualified Code(s): I15.2 - Hypertension secondary to endocrine disorders Comment/Plan: Keep SBP above 140, gradually resume antihypertensive meds over the next 24-48 hours in light of acute CVA. XB=409/61 today. Case Care Discussed with: Patient, Family, Nursing Staff, Resource Management Education/Counseling Given To: Patient, Family Member Education/Counseling Given Regarding: Diagnosis, Treatment, Prognosis Total Time: 45 min Critical Care: No Couseling Time (>50% in counseling/coordination): Yes Code: 59971 (12+)
[2016-10-04] MEDS: CALCIUM CARBONATE + VITAMIN D 500 MG TAB NG SCH ×2 (14:44→18:54)
[2016-10-04] MEDS: AZITHROMYCIN 500 MG in D5W 250 ML IV SCH (14:46)
[2016-10-04] MEDS: CEFTRIAXONE 1 GM in D5W 100 ML IV SCH (20:20)
[2016-10-04] MEDS: SENNA CONCENTRATE TAB NG SCH (20:25)
[2016-10-04] MEDS: PRAVASTATIN 20 MG TAB NG SCH (20:25)
[2016-10-04] MEDS: TAMSULOSIN HCL 0.4 MG CAP PO SCH (20:25)
[2016-10-04] MEDS: CYANOCOBALAMIN (Vitamin B-12) 500 MCG TABLET NG SCH (20:25)
[2016-10-04] MEDS: SERTRALINE HCL 100 MG TAB NG SCH (20:25)
[2016-10-04] MEDS: DEXTROSE 25 GM/50 ML PFS IV PRN (23:39)
[2016-10-05] MEDS: LANSOPRAZOLE 30 MG TAB NG SCH (05:06)
[2016-10-05] MEDS: REGULAR INSULIN 100 UNITS/ML - 3 ML VIAL SQ SCH ×4 (05:06→23:44)
[2016-10-05 06:31] LABS: MPV 9.7 fL (7.4-10.4)
[2016-10-05 06:43] LABS: BLOOD UREA NITROGEN 27 MG/DL (9-20); CALCIUM 8.7 MG/DL (8.4-10.2); CALCULATED OSMOLALITY 271 MOs/Kg (270-290); CHLORIDE 105 mEq/L (98-107); GLUCOSE 100 mg/dL (70-99); SODIUM LEVEL 138 mEq/L (137-146)
[2016-10-05] MEDS ORDERED: ERGOCALCIFEROL (VITAMIN D2) 50000 UNITS CAP PO SCH (09:00)
[2016-10-05] MEDS: INSULIN DETEMIR 100 UNITS/ML PEN SQ SCH (09:09)
[2016-10-05] MEDS: ACETAMINOPHEN 325 MG/TAB TABLET PO SCH ×4 (10:17→21:04)
[2016-10-05] MEDS: FINASTERIDE 5 MG TAB PO SCH (10:18)
[2016-10-05] MEDS: DIVALPROEX SODIUM 125 MG CAP PO SCH ×2 (10:20→21:09)
[2016-10-05] MEDS: CALCIUM CARBONATE + VITAMIN D 500 MG TAB NG SCH ×2 (10:21→15:10)
[2016-10-05] MEDS: APIXABAN 5 MG TABLET NG SCH ×2 (10:21→21:03)
[2016-10-05 13:40] VITALS: TEMP 98.5
--- NOTE | 2016-10-05 13:48 | GENMEDPROG ---
Chief Complaint: CVA, ATRIAL FIB, PNEUMONIA, DM-2, CONFUSION, ATAXIA, Currently: Reports: Other (unresponsive) DVT Prophylaxis: Yes - Physical Examination Vital Signs and I&O: Last Vital Signs Temp 98.6 F 10/05/16 11:09 Pulse 78 10/05/16 11:09 Resp 18 10/05/16 11:09 BP 119/72 10/05/16 11:09 Pulse Ox 92 10/05/16 11:09 Oxygen Pulse Oxygen Saturation 92 O2 Device Room Air Oxygen Flow Rate 2 Fraction of Inspired Oxygen ( FIO2) Intake & Output 10/02/16 10/03/16 10/04/16 10/05/16 23:59 23:59 23:59 23:59 Intake Total 2558 450 875 642 Output Total 200 100 425 50 Balance 2358 350 450 592 Patient's weight 82.962 kg 82.418 kg 82.372 kg 82.327 kg General: Alert, Cooperative, Mild distress, Weakness. negative: Oriented x3 HEENT: PERRLA (pupils constricted), Anicteric Sclera, Mucous membr. moist/pink Neck: Normal Trachea alignment, Normal inspection, No Masses palpable Lymphatics: Normal Respiratory: Normal - CTA Cardiovascular: Regular rate and rhythm, Normal S1, Normal S2 GI: Normal bowel sounds, Soft, Non tender Extremities/Musculoskeletal: Normal pulses, DJD, Muscle Tone (normal). 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 Intermittent myoclonic jerking.) Psych/Mental Status: Cooperative, Drowsy, Somnolent, Lethargic Lab/DI/Studies Reviewed: Laboratory Tests 10/05/16 10/05/16 10/05/16 00:00 05:55 05:55 WBC 7.4 Hgb 10.7 L Hct 32.0 L Plt Count 202 Sodium 138 Potassium 3.4 L Chloride 105 Carbon Dioxide 24 Anion Gap 12 BUN 27 H Creatinine 0.80 Estimated GFR (MDRD) > 60 Glucose 100 H POC Capillary Glucose 113 H Calculated Osmolality 271 Calcium 8.7 Magnesium 1.90 [id number] Pept 4520 H - Assessment (1) CVA (cerebral vascular accident) Acute I63.9 - CEREBRAL INFARCTION, UNSPECIFIED Qualifiers: Precerebral and cerebral artery: middle cerebral artery Laterality of affected vessel: left Comment/Plan: Patient is currently on Eliquis. Have consulted neurology. Continues to have symptoms of falling backwards, but less somnolent toay. Changed valproic acid to PO today, able to take PO feeds and meds now. More alert at short intervals. Did better with PT also. Able to transfer with max assistance from bed to chair. (2) Atrial fibrillation with normal ventricular rate Chronic I48.91 - UNSPECIFIED ATRIAL FIBRILLATION Comment/Plan: Rate controlled.Keep K more than 4 magnesium more than 2 (3) Pneumonia Acute J18.9 - PNEUMONIA, UNSPECIFIED ORGANISM Qualifiers: Pneumonia type: due to unspecified organism Laterality: bilateral Lung location: lower lobe of lung Qualified Code(s): J18.9 - Pneumonia, unspecified organism Comment/Plan: Continue on IV Rocephin and Azithromycin. No fever or elevation in WBC, but patient has chest congestion and abnormal CXR. 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 Sugars range 80-278. (5) Vertigo Acute R42 - DIZZINESS AND GIDDINESS Comment/Plan: The patient developed this last week as his speech improved. CT of head also showed older CVA in occipital area of brain. Ultrasound of his carotid/vertebrals did not show any significant stenosis. Tolerating IV valproic acid, convert to PO if sx continue to improve with treatment and patient is able to swallow. (6) GERD (gastroesophageal reflux disease) Chronic K21.9 - GASTRO-ESOPHAGEAL REFLUX DISEASE WITHOUT ESOPHAGITIS Qualifiers: Esophagitis presence: without esophagitis Qualified Code(s): K21.9 - Gastro -esophageal reflux disease without esophagitis Comment/Plan: Continue PPI (7) Hypertension Chronic I10 - ESSENTIAL (PRIMARY) HYPERTENSION Qualifiers: Hypertension type: secondary to endocrine disorders Qualified Code(s): I15.2 - Hypertension secondary to endocrine disorders Comment/Plan: Keep SBP above 140, gradually resume antihypertensive meds over the next 24-48 hours in light of acute CVA. FK=550/61 today.
[2016-10-05] MEDS: AZITHROMYCIN 500 MG in D5W 250 ML IV SCH (15:10)
[2016-10-05] MEDS: CEFTRIAXONE 1 GM in D5W 100 ML IV SCH (16:54)
[2016-10-05] MEDS: KCl 10 mEq/100 ml Premix (Run) 10 MEQ/100 ML RTU IV SCH ×4 (18:22→21:55)
[2016-10-05] MEDS: SENNA CONCENTRATE TAB NG SCH (21:03)
[2016-10-05] MEDS: PRAVASTATIN 20 MG TAB NG SCH (21:03)
[2016-10-05] MEDS: CYANOCOBALAMIN (Vitamin B-12) 500 MCG TABLET NG SCH (21:04)
[2016-10-05] MEDS: SERTRALINE HCL 100 MG TAB NG SCH (21:05)
[2016-10-05] MEDS: TEMAZEPAM 15 MG CAP PO PRN (21:05)
[2016-10-05] MEDS: TAMSULOSIN HCL 0.4 MG CAP PO SCH (21:08)
[2016-10-06 04:01] VITALS: BMI 26.2
[2016-10-06] MEDS: LANSOPRAZOLE 30 MG TAB NG SCH (06:10)
[2016-10-06] MEDS: REGULAR INSULIN 100 UNITS/ML - 3 ML VIAL SQ SCH (06:17)
--- NOTE | 2016-10-06 08:27 | PCM.DCS92 ---
- Final/Secondary Discharge Diagnosis (1) CVA (cerebral vascular accident) Acute I63.9 - CEREBRAL INFARCTION, UNSPECIFIED Present on Admission: Yes middle cerebral artery left Comment: Patient is currently on Eliquis. Have consulted neurology. Continues to have symptoms of falling backwards, but less somnolent toay. Changed valproic acid to PO today, able to take PO feeds and meds now. More alert at short intervals. Did better with PT also. Able to transfer with max assistance from bed to chair. (2) Atrial fibrillation with normal ventricular rate Chronic I48.91 - UNSPECIFIED ATRIAL FIBRILLATION Present on Admission: Yes Comment: Rate controlled.Keep K more than 4 magnesium more than 2 (3) Pneumonia Acute J18.9 - PNEUMONIA, UNSPECIFIED ORGANISM Present on Admission: Yes due to unspecified organism bilateral lower lobe of lung J18.9 - Pneumonia, unspecified organism Comment: Has received 5 days of IV Rocephin and Azithromycin. No fever or elevation in WBC, but patient has chest congestion and abnormal CXR. Will discharge with Ceftin PO. (4) Diabetes mellitus Chronic E11.9 - TYPE 2 DIABETES MELLITUS WITHOUT COMPLICATIONS Present on Admission: Yes type 2 with neurologic complications with polyneuropathy with assisted use E11.42 - Type 2 diabetes mellitus with diabetic polyneuropathy; Z79.4 - terminal carman (current) use of insulin Comment: Continue ADA diet, Levemir, and sliding scale regular insulin. Sugars range 80-278. (5) Vertigo Acute R42 - DIZZINESS AND GIDDINESS Present on Admission: Yes Comment: The patient developed this last week as his speech improved. Patient has +Rhomberg. CT of head also showed older CVA in occipital area of brain. Ultrasound of his carotid/vertebrals did not show any significant stenosis. Tolerating valproic acid, converted to PO form now that patient is able to swallow, tatking regular diet with ground meats and thin liquids. Takes meds in applesauce (whole tabs or crushed if large). (6) GERD (gastroesophageal reflux disease) Chronic K21.9 - GASTRO-ESOPHAGEAL REFLUX DISEASE WITHOUT ESOPHAGITIS Present on Admission: Yes without esophagitis K21.9 - Gastro-esophageal reflux disease without esophagitis Comment: Continue PPI (7) Hypertension Chronic I10 - ESSENTIAL (PRIMARY) HYPERTENSION Present on Admission: Yes secondary to endocrine disorders I15.2 - Hypertension secondary to endocrine disorders Comment: Keep SBP above 140, gradually resume antihypertensive meds over the next 24-48 hours in light of acute CVA. XH=361/61 today. Discharge Disposition: Custodial Facility Discharge Condition: Improved Cognitive Discharge Status: Unable to communicate needs, Cognitive deficits prevent decision making for safety., Cognitive Deficits Impact judgement, impair ability to safely navigate Fuctional Discharge Status: Walker Assistance, Total Assistance Required, Fall Risk, Inability to drive due to severe medical illness, Ambulatory Dysfunction Physician Follow up/Referrals: Thomas Last MD [Primary Care Provider] - One Week Home Medications / New Prescriptions: New Apixaban [Eliquis] 5 mg NG BID #60 tablet Cefuroxime Axetil [Ceftin] 500 mg PO BID #10 tablet Cyanocobalamin (Vitamin B-12) [B-12] 1,000 mcg PO HS #30 tablet Divalproex Sodium [Depakote Sprinkle] 500 mg PO BID #240 capsule Lansoprazole [Prevacid Solutabs] 30 mg NG 0600 #30 tablet Lisinopril [Prinivil] 2.5 mg PO DAILY #30 tablet Continue Finasteride 5 mg PO QAM Insulin Detemir [Levemir] 16 units SQ QAM Furosemide 20 mg PO QAM PRN PRN Reason: Swelling In Feet/Legs Pravastatin [Pravachol] 20 mg PO HS Ergocalciferol (Vitamin D2) [Vitamin D2 (ergocalciferol)] 50,000 units PO Th@ 0900 Sertraline HCl [Zoloft] 100 mg PO QHS Tamsulosin HCl [Flomax] 0.4 mg PO HS #30 cap Calcium Carbonate + Vitamin D [Oscal with Vitamin D] 500 mg PO BID #90 tab Zaleplon [Sonata] 10 mg PO HS PRN #20 capsule PRN Reason: Sleep Or Insomnia Acetaminophen [Tylenol] 650 mg PO QID #120 tablet Ondansetron HCl [Zofran] 4 mg PO Q6H PRN #15 tab PRN Reason: Nausea/Vomiting Discontinued Cyanocobalamin (Vitamin B-12) [Vitamin B-12] 100 mcg PO HS Aspirin (Enteric Coated) [Halfprin] 81 mg PO DAILY #90 tab Clopidogrel Bisulfate [Plavix] 75 mg PO DAILY #30 tab Lisinopril [Prinivil] 5 mg PO DAILY #30 tab Pantoprazole Sodium [Protonix] 40 mg PO DAILY #30 tab Senna Concentrate [Senokot] 2 tab PO HS #120 tablet O2 Device: Room Air Diet at Discharge: Heart Healthy, Low Salt Activity: As Tolerated Call Office For: Worsening Symptoms, Fever over 101 F, Pain Uncontrolled By Meds - DC Summary Notes Hospital Course Note:: Discharge summary on patient named JINNY SCHNEIDER admitted to [facility] on 10/01/16 by Thomas Last MD. Date of discharge is [10/06/16]. 85 yowm brought to emergency room early on from long-term facility for evaluation of sudden onset of profound slurring of speech and confusion. Patient was recently hospitalized at [facility] for stroke symptoms, his initial presentation was left-sided weakness ataxia and profound slurring of the speech with left-sided facial droop. MRI was negative for acute stroke. Carotid Dopplers showed less than 50% stenosis. During the 1st hospitalization family reported the patient was taken off Coumadin due significant risk of falls , Coumadin was replaced with aspirin. Case was discussed with Dr. Mendoza was recommended combination of aspirin and Plavix. Patient condition has improved, speech returned to normal and he was discharged to long-term facility for PT OT and OT. Early on this morning patient has suddenly developed profound slurring of the speech and confusion with left-sided facial droop. He was transferred to emergency room for further evaluation. ED workup was undertaken and medical consult was phoned in for inpatient treatment. 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 The patient is currently on Eliquis. Have consulted neurology. He has a positive Rhomberg reflex and continues to have symptoms of falling backwards, but is less somnolent today. He was given a trial of valproic acid for this , which seems to help his symptoms. His EEG is abnormal, but not diagnostic of seizures. We changed the valproic acid to PO today, as he is able to take PO feeds and meds now. More alert at short intervals. Did better with PT also. Able to transfer with max assistance from bed to chair. He is diabetic, but we stopped his oral medications because he was initially unable to eat. He has been started back on a diabetic diet now, with ground meats and thin liquids. Continue ADA diet, Levemir, and sliding scale regular insulin. Sugars range 80-278. I have advised his family that his prognosis is poor, but that a trial of physical therapy is reasonable to see how he progresses. He will be transferred to [facility] long-term facility today for rehabilitation. I expect he will eventually need palliative care. Code: 13743 (>30min.) - Physical Exam Vital Signs: Last Vital Signs Temp 98.6 F 10/06/16 08:15 Pulse 85 10/06/16 08:15 Resp 18 10/06/16 08:15 BP 124/66 10/06/16 08:15 Pulse Ox 92 10/06/16 08:15 Oxygen Pulse Oxygen Saturation 92 O2 Device Room Air Oxygen Flow Rate 2 Fraction of Inspired Oxygen ( FIO2) Constitutional: No apparent distress, Somnolent Oriented to: Time (able to say 2017), Person, Place - HEENT Head: Normal Oropharynx: Normal, Other (mouth breather) Tympanic Membrane: Dull Nose: No Symptoms Reported - Respiratory/Cardiovascular Respiratory: Normal - CTA Cardiovascular: Normal (regular rhythm and rate) - GI Auscultation: Normal Palpation: Normal Tenderness: Non tender Son's Sign: Negative Rectal Exam: Deferred - Musculoskeletal Back: Normal Extremities: Normal - Integumentary Skin: Warm, Dry Lymphatics: Normal - Neurologic Memory Impaired: Unable to Test Motor Function: Abnormal (increased rigidity, + Rhomberg) Cranial Nerve: Normal Cerebellar: Ataxia, Other (+ Rhomberg) Mood Description: Appropriate Thought: Other (Unable to assess due to somnolence) Perception: Other (Unable to asssess)
[2016-10-06] MEDS: INSULIN DETEMIR 100 UNITS/ML PEN SQ SCH (09:47)
[2016-10-06] MEDS: APIXABAN 5 MG TABLET NG SCH (10:20)
[2016-10-06] MEDS: FINASTERIDE 5 MG TAB PO SCH (10:20)
[2016-10-06] MEDS: ACETAMINOPHEN 325 MG/TAB TABLET PO SCH (10:20)
[2016-10-06] MEDS: DIVALPROEX SODIUM 125 MG CAP PO SCH (10:20)
[2016-10-06 12:18] VITALS: BP 121/63; PULSE 74; TEMP 98.1
== END 2016-10-06 13:20 | DRG 64 ==
LOC: ED 09:50 → PCU 11:51
PROVIDERS: ADMIT Internal Medicine; ATTEND Family Medicine
DX: I63.512 Cerebral infarction due to unspecified occlusion or stenosis of left middle cerebral artery (principal); J18.9 Pneumonia, unspecified organism; N18.4 Chronic kidney disease, stage 4 (severe); I13.0 Hypertensive heart and chronic kidney disease with heart failure and stage 1 through stage 4 chronic kidney disease, or unspecified chronic kidney disease; E11.22 Type 2 diabetes mellitus with diabetic chronic kidney disease; I48.91 Unspecified atrial fibrillation; G81.94 Hemiplegia, unspecified affecting left nondominant side; I50.9 Heart failure, unspecified; E11.42 Type 2 diabetes mellitus with diabetic polyneuropathy; I25.10 Atherosclerotic heart disease of native coronary artery without angina pectoris; R41.82 Altered mental status, unspecified; E78.00 Pure hypercholesterolemia, unspecified; R47.81 Slurred speech; R54 Age-related physical debility; R13.12 Dysphagia, oropharyngeal phase; R29.810 Facial weakness; R27.0 Ataxia, unspecified; E11.3519 Type 2 diabetes mellitus with proliferative diabetic retinopathy with macular edema, unspecified eye; K21.9 Gastro-esophageal reflux disease without esophagitis; N40.0 Benign prostatic hyperplasia without lower urinary tract symptoms; M19.90 Unspecified osteoarthritis, unspecified site; F41.9 Anxiety disorder, unspecified; Z86.73 Personal history of transient ischemic attack (TIA), and cerebral infarction without residual deficits; Z79.82 Long term (current) use of aspirin; Z79.4 Long term (current) use of insulin; Z79.02 Long term (current) use of antithrombotics/antiplatelets
CPT/HCPCS: 70450; 70551; 71010; 80048; 80053; 80061; 81001; 82962; 83090; 83735; 83880; 84443; 84484; 85025; 85027; 85610; 85651; 85730; 86038; 86140; 86592; 87040; 87086; 93005; 95819; 96372; 97162; 97165; 99284; G0237; J0456; J0696; J1630; J1940; J2060; J3480; J3490; J7030; J7060; J7070